=== PATIENT | male | born 1955 | race Caucasian/White ===

== ENCOUNTER 2017-04-25 10:46 | Day surgery (SDC) | payer BC ==
[~2017-04-25] VITALS: Ht 165.1 cm; Wt 79.5 kg
[2017-04-25] MEDS ORDERED: OXYC-307 PO (11:16)
[2017-04-25] MEDS ORDERED: ALPR-475 PO (11:16)
[2017-04-25] MEDS ORDERED: LACTATED RINGERS 1,000 ML IV SCH (11:16)
[2017-04-25 11:17] VITALS: BP 133/94
[2017-04-25 11:58] LABS: BASOPHILS # (AUTO) 0.03 x10^3/uL (0-0.1); BASOPHILS % (AUTO) 0 % (0-1); EOSINOPHILS # (AUTO) 0.06 x10^3/uL (0-0.4); EOSINOPHILS % (AUTO) 1 % (1-7); LYMPHOCYTES # (AUTO) 1.43 x10^3/uL (1-3.4); LYMPHOCYTES % (AUTO) 19 % (22-44); MD NO; MEAN CORPUSCULAR HEMOGLOBIN 29.5 pg (27.5-34.5); MEAN CORPUSCULAR HGB CONC 34.1 g/dL (33.2-36.2); MEAN CORPUSCULAR VOLUME 86.6 fL (81-97); MEAN PLATELET VOLUME 8.3 fL (7.4-10.4); MONOCYTES # (AUTO) 0.66 x10^3/uL (0.2-0.8); MONOCYTES % (AUTO) 9 % (2-9); NEUTROPHILS # (AUTO) 5.43 x10^3/uL (1.8-6.8); NEUTROPHILS % (AUTO) 71 % (42-75); PLATELET COUNT 196 x10^3/uL (130-400); RED BLOOD COUNT 5.09 x10^6/uL (4.38-5.82); RED CELL DISTRIBUTION WIDTH 13.3 % (9.4-14.8)
[2017-04-25 12:10] LABS: ANION GAP 10 mmol/L (5-15); CHLORIDE 105 mmol/L (98-107)
[2017-04-25] MEDS ORDERED: NEOSPORIN OINT. PKT 1 PACKET ONE (12:50)
[2017-04-25] MEDS ORDERED: LIDOCAINE 1%, 50ML ONE (12:50)
[2017-04-25] MEDS ORDERED: EPINEPHRINE 1 MG/ML, 1ML ONE ×2 (12:51→13:41)
[2017-04-25] MEDS ORDERED: SUCCINYLCHOLINE 20 MG/ML, 10ML ONE (13:16)
[2017-04-25] MEDS ORDERED: ROCURONIUM 10 MG/ML,10ML ONE (13:16)
[2017-04-25] MEDS ORDERED: CEFAZOLIN 1,000 MG ONE (13:16)
[2017-04-25] MEDS ORDERED: DEXAMETHASONE 4 MG/ML, 1ML ONE (13:16)
[2017-04-25] MEDS ORDERED: GLYCOPYRROLATE 0.2MG/1ML, 5ML ONE (13:16)
[2017-04-25] MEDS ORDERED: PROPOFOL 10 MG/ML, 20ML ONE ×2 (13:16→13:32)
[2017-04-25] MEDS ORDERED: NEOSTIGMINE 1 MG/ML, 10ML ONE (13:16)
[2017-04-25] MEDS ORDERED: ONDANSETRON 2MG/ML, 2ML ONE (13:16)
[2017-04-25] MEDS ORDERED: FENTANYL PF 100 MCG/2ML ONE (13:31)
[2017-04-25] MEDS ORDERED: MIDAZOLAM 1 MG/ML, 2ML ONE ×2 (13:31→13:59)
[2017-04-25] MEDS ORDERED: LIDOCAINE/MPF 2%-EPI 1:200K, 20 ML ONE (13:36)
[2017-04-25] MEDS ORDERED: LIDOCAINE-MPF 2% ,5ML ONE (13:40)
[2017-04-25] MEDS ORDERED: FENTANYL PF 100 MCG/2ML IV PRN (14:30)
[2017-04-25] MEDS ORDERED: EPHEDRINE 50 MG/ML, 1ML IVPush PRN (14:30)
[2017-04-25] MEDS ORDERED: ALBUTEROL SULFATE 2.5 MG/3 ML NPPB PRN (14:30)
[2017-04-25] MEDS ORDERED: ACETAMINOPHEN 325 MG TABLET PO PRN (14:30)
[2017-04-25] MEDS ORDERED: LABETALOL 5MG/ML, 20ML IV PRN (14:30)
[2017-04-25] MEDS ORDERED: OXYcodone 5 MG/5 ML ORAL.SOL UDC ONE (14:53)
[2017-04-25] MEDS ORDERED: OXYcodone 5 MG/5 ML ORAL.SOL UDC PO PRN (15:00)
== END 2017-04-25 16:25 ==
LOC: OUT 10:46
PROVIDERS: ATTEND Otolaryngology Facial Plastic Surgery
DX: C83.31 Diffuse large B-cell lymphoma, lymph nodes of head, face, and neck (principal)
CPT/HCPCS: 36415; 38510; 71045; 80048; 85025; 88305; 93005; J0171; J0690; J2250; J2704; J3010; J3490; J7120; J1100; J2405; J2710; J0330

== ENCOUNTER 2017-05-01 12:03 | Inpatient (IN) | payer BC ==
[~2017-05-01] VITALS: Ht 165.1 cm; Wt 77.9 kg
[~2017-05-01 12:03] MED LIST: ALPR-475 PO; OXYC-307 PO
[2017-05-01] MEDS ORDERED: SODIUM CHLORIDE FLUSH 10ML SYR IVF ONE (13:30)
[2017-05-01] MEDS ORDERED: MORPHINE SULFATE 4 MG/ML, 1ML IVPush PRN (13:30)
[2017-05-01] MEDS ORDERED: ONDANSETRON 2MG/ML, 2ML IVPush ONE (13:30)
[2017-05-01 13:48] LABS: BASOPHILS # (AUTO) 0.03 x10^3/uL (0-0.1); BASOPHILS % (AUTO) 0 % (0-1); EOSINOPHILS # (AUTO) 0.02 x10^3/uL (0-0.4); EOSINOPHILS % (AUTO) 0 % (1-7); LYMPHOCYTES # (AUTO) 1.14 x10^3/uL (1-3.4); LYMPHOCYTES % (AUTO) 13 % (22-44); MD NO; MEAN CORPUSCULAR HEMOGLOBIN 29.2 pg (27.5-34.5); MEAN CORPUSCULAR HGB CONC 33.8 g/dL (33.2-36.2); MEAN CORPUSCULAR VOLUME 86.4 fL (81-97); MEAN PLATELET VOLUME 8.5 fL (7.4-10.4); MONOCYTES # (AUTO) 0.86 x10^3/uL (0.2-0.8); MONOCYTES % (AUTO) 9 % (2-9); NEUTROPHILS # (AUTO) 7.02 x10^3/uL (1.8-6.8); NEUTROPHILS % (AUTO) 77 % (42-75); PLATELET COUNT 206 x10^3/uL (130-400); RED BLOOD COUNT 4.96 x10^6/uL (4.38-5.82); RED CELL DISTRIBUTION WIDTH 13.7 % (9.4-14.8)
[2017-05-01 13:52] LABS: INTERNATIONAL NORMALIZED RATIO 1.07 (0.93-1.1)
[2017-05-01] MEDS ORDERED: MORPHINE SULFATE 4 MG/ML, 1ML ONE (13:56)
[2017-05-01] MEDS ORDERED: ONDANSETRON 2MG/ML, 2ML ONE (13:56)
[2017-05-01] MEDS ORDERED: SODIUM CHLORIDE 0.9% 1,000ML IVBOLUS ONE (14:30)
[2017-05-01 14:38] LABS: ALANINE AMINOTRANSFERASE 20 U/L (12-78); ALBUMIN 3.3 g/dL (3.4-5.0); ANION GAP 14 mmol/L (5-15); CALCIUM 8.7 mg/dL (8.5-10.1); CHLORIDE 99 mmol/L (98-107); CREATININE 0.96 mg/dL (0.7-1.3)
[2017-05-01 14:41] LABS: ALKALINE PHOSPHATASE 76 U/L (45-117); BILIRUBIN,TOTAL 0.6 mg/dL (0.2-1.0); TOTAL PROTEIN 7.1 g/dL (6.4-8.2)
[2017-05-01] MEDS ORDERED: CEFAZOLIN PMX 1GM/50ML 50 ML IVPB ONE (16:00)
[2017-05-01] MEDS ORDERED: HYDROmorphone 1 MG/ML, 1ML IVPush PRN (16:00)
[2017-05-01] MEDS ORDERED: HYDROmorphone 2 MG/ML, 1ML ONE (16:07)
[2017-05-01] MEDS ORDERED: CEFAZOLIN PMX 1GM/50ML 50 ML ONE (16:07)
[2017-05-01] MEDS ORDERED: SODIUM CHLORIDE 0.9% 1,000 ML IV ONE (16:38)
[2017-05-01] MEDS: SODIUM CHLORIDE 0.9% 1,000 ML IV SCH (16:53)
[2017-05-01] MEDS ORDERED: hydrALAzine 20 MG/ML, 1ML IVPush PRN (17:00)
[2017-05-01] MEDS ORDERED: LORazepam 2 MG/ML, 1ML IVPush PRN (17:00)
[2017-05-01] MEDS ORDERED: SODIUM CHLORIDE FLUSH 10ML SYR IVF PRN (17:00)
[2017-05-01] MEDS ORDERED: ONDANSETRON 2MG/ML, 2ML IVPush PRN (17:00)
[2017-05-01] MEDS ORDERED: DOCUSATE 100 MG CAPSULE PO PRN (17:00)
[2017-05-01] MEDS ORDERED: LABETALOL 5MG/ML, 20ML IVPush PRN (17:00)
[2017-05-01] MEDS ORDERED: HYDROmorphone 2 MG/ML, 1ML IVPush PRN (17:00)
[2017-05-01] MEDS ORDERED: BISACODYL 10 MG SUPP PR PRN (17:00)
[2017-05-01 18:15] VITALS: BP 142/91
[2017-05-01] MEDS: HYDROmorphone 2 MG/ML, 1ML IVPush PRN ×2 (18:26→22:27)
[2017-05-01 19:48] VITALS: BP 128/86
[2017-05-02] MEDS: SODIUM CHLORIDE 0.9% 1,000 ML IV SCH ×3 (00:34→21:16)
[2017-05-02] MEDS: HYDROmorphone 2 MG/ML, 1ML IVPush PRN (02:59)
[2017-05-02] MEDS: ONDANSETRON 2MG/ML, 2ML IVPush PRN ×2 (02:59→18:06)
[2017-05-02 03:00] VITALS: BP 137/85
[2017-05-02] MEDS: morphine SULFATE 10 MG/ML, 1ML IVPush PRN ×5 (04:22→21:16)
[2017-05-02 05:02] LABS: BASOPHILS # (AUTO) 0.05 x10^3/uL (0-0.1); BASOPHILS % (AUTO) 1 % (0-1); EOSINOPHILS # (AUTO) 0.03 x10^3/uL (0-0.4); EOSINOPHILS % (AUTO) 0 % (1-7); LYMPHOCYTES # (AUTO) 1.21 x10^3/uL (1-3.4); LYMPHOCYTES % (AUTO) 15 % (22-44); MD NO; MEAN CORPUSCULAR HEMOGLOBIN 29.2 pg (27.5-34.5); MEAN CORPUSCULAR HGB CONC 33.5 g/dL (33.2-36.2); MEAN CORPUSCULAR VOLUME 87.4 fL (81-97); MEAN PLATELET VOLUME 8.6 fL (7.4-10.4); MONOCYTES # (AUTO) 0.69 x10^3/uL (0.2-0.8); MONOCYTES % (AUTO) 9 % (2-9); NEUTROPHILS # (AUTO) 6.18 x10^3/uL (1.8-6.8); NEUTROPHILS % (AUTO) 76 % (42-75); PLATELET COUNT 204 x10^3/uL (130-400); RED BLOOD COUNT 4.41 x10^6/uL (4.38-5.82); RED CELL DISTRIBUTION WIDTH 13.3 % (9.4-14.8)
[2017-05-02 05:14] LABS: CHLORIDE 102 mmol/L (98-107)
[2017-05-02 05:15] LABS: ANION GAP 12 mmol/L (5-15); CALCIUM 7.9 mg/dL (8.5-10.1)
[2017-05-02 05:20] LABS: ALANINE AMINOTRANSFERASE 18 U/L (12-78); ALKALINE PHOSPHATASE 68 U/L (45-117); BILIRUBIN,TOTAL 0.6 mg/dL (0.2-1.0); CREATININE 0.74 mg/dL (0.7-1.3); TOTAL PROTEIN 6.3 g/dL (6.4-8.2)
[2017-05-02 06:56] VITALS: BP 122/74
[2017-05-02] MEDS ORDERED: METOCLOPRAMIDE 5 MG/ML, 2ML ONE (08:05)
[2017-05-02] MEDS: SENNA/DOCUSATE TABLET PO SCH (08:10)
[2017-05-02] MEDS: METOCLOPRAMIDE 5 MG/ML, 2ML IVPush PRN (08:10)
[2017-05-02 14:06] VITALS: BP 115/67
[2017-05-02 19:30] VITALS: BP 150/86
[2017-05-02] MEDS: ALLOPURINOL 300 MG TABLET PO SCH (20:11)
[2017-05-03] MEDS: morphine SULFATE 10 MG/ML, 1ML IVPush PRN ×5 (00:17→19:23)
[2017-05-03 02:15] VITALS: BP 126/77
[2017-05-03 05:05] LABS: BASOPHILS # (AUTO) 0.06 x10^3/uL (0-0.1); BASOPHILS % (AUTO) 1 % (0-1); EOSINOPHILS # (AUTO) 0.04 x10^3/uL (0-0.4); EOSINOPHILS % (AUTO) 1 % (1-7); LYMPHOCYTES # (AUTO) 1.11 x10^3/uL (1-3.4); LYMPHOCYTES % (AUTO) 17 % (22-44); MD NO; MEAN CORPUSCULAR HEMOGLOBIN 29.1 pg (27.5-34.5); MEAN CORPUSCULAR HGB CONC 33.6 g/dL (33.2-36.2); MEAN CORPUSCULAR VOLUME 86.7 fL (81-97); MEAN PLATELET VOLUME 8.2 fL (7.4-10.4); MONOCYTES # (AUTO) 0.71 x10^3/uL (0.2-0.8); MONOCYTES % (AUTO) 11 % (2-9); NEUTROPHILS # (AUTO) 4.56 x10^3/uL (1.8-6.8); NEUTROPHILS % (AUTO) 70 % (42-75); PLATELET COUNT 190 x10^3/uL (130-400); RED BLOOD COUNT 4.24 x10^6/uL (4.38-5.82); RED CELL DISTRIBUTION WIDTH 13.6 % (9.4-14.8)
[2017-05-03 05:07] LABS: ALBUMIN 2.8 g/dL (3.4-5.0); ANION GAP 12 mmol/L (5-15); CALCIUM 8.3 mg/dL (8.5-10.1); CHLORIDE 106 mmol/L (98-107)
[2017-05-03 05:18] LABS: ALANINE AMINOTRANSFERASE 19 U/L (12-78); ALKALINE PHOSPHATASE 64 U/L (45-117); BILIRUBIN,TOTAL 0.6 mg/dL (0.2-1.0); CREATININE 0.76 mg/dL (0.7-1.3); TOTAL PROTEIN 5.9 g/dL (6.4-8.2)
[2017-05-03] MEDS: SODIUM CHLORIDE 0.9% 1,000 ML IV SCH (07:28)
[2017-05-03 07:47] VITALS: BP 132/80
[2017-05-03] MEDS: ALLOPURINOL 300 MG TABLET PO SCH ×2 (08:03→21:33)
[2017-05-03] MEDS: SENNA/DOCUSATE TABLET PO SCH (08:15)
[2017-05-03] MEDS ORDERED: LIDOCAINE 1%, 20ML ONE (11:57)
[2017-05-03] MEDS ORDERED: MIDAZOLAM 1 MG/ML, 5ML ONE (12:03)
[2017-05-03] MEDS ORDERED: FLUMAZENIL 0.1 MG/1 ML, 5ML ONE (12:03)
[2017-05-03] MEDS ORDERED: NALOXONE 1 MG/ML, 2ML ONE (12:03)
[2017-05-03] MEDS ORDERED: FENTANYL PF 100 MCG/2ML ONE (12:03)
[2017-05-03] MEDS ORDERED: CEFAZOLIN PMX 1GM/50ML 50 ML ONE (12:03)
[2017-05-03 13:00] LABS: BASOPHILS # (AUTO) 0.01 x10^3/uL (0-0.1); BASOPHILS % (AUTO) 0 % (0-1); EOSINOPHILS # (AUTO) 0.02 x10^3/uL (0-0.4); EOSINOPHILS % (AUTO) 0 % (1-7); LYMPHOCYTES # (AUTO) 1.18 x10^3/uL (1-3.4); LYMPHOCYTES % (AUTO) 19 % (22-44); MD NO; MEAN CORPUSCULAR HEMOGLOBIN 29.1 pg (27.5-34.5); MEAN CORPUSCULAR HGB CONC 33.6 g/dL (33.2-36.2); MEAN CORPUSCULAR VOLUME 86.6 fL (81-97); MEAN PLATELET VOLUME 8.1 fL (7.4-10.4); MONOCYTES # (AUTO) 0.53 x10^3/uL (0.2-0.8); MONOCYTES % (AUTO) 8 % (2-9); NEUTROPHILS # (AUTO) 4.67 x10^3/uL (1.8-6.8); NEUTROPHILS % (AUTO) 73 % (42-75); PLATELET COUNT 212 x10^3/uL (130-400); RED BLOOD COUNT 4.53 x10^6/uL (4.38-5.82); RED CELL DISTRIBUTION WIDTH 13.7 % (9.4-14.8)
[2017-05-03 13:13] LABS: ANION GAP 14 mmol/L (5-15); CALCIUM 8.5 mg/dL (8.5-10.1); CHLORIDE 104 mmol/L (98-107)
[2017-05-03 13:17] LABS: TROPONIN I < 0.015 ng/mL (0.000-0.045)
[2017-05-03] MEDS ORDERED: FOSAPREPITANT 150 MG in SODIUM CHLORIDE 0.9% 145 ML IV ONE (13:30)
[2017-05-03] MEDS ORDERED: ONDANSETRON 16 MG, DEXAMETHASONE 12 MG in SODIUM CHLORIDE 0.9% 50 ML IVPB ONE ×2 (14:00→16:30)
[2017-05-03] MEDS ORDERED: DIPHENHYDRAMINE 50 MG/ML, 1ML IVPush ONE (14:00)
[2017-05-03] MEDS ORDERED: FAMOTIDINE 20 MG/2 ML IVPush ONE (14:00)
[2017-05-03] MEDS ORDERED: RITUXIMAB 700 MG in SODIUM CHLORIDE 0.9% 250 ML IV ONE (17:00)
[2017-05-03] MEDS ORDERED: SODIUM CHLORIDE 0.9% IV ONE (21:30)
[2017-05-03] MEDS ORDERED: CYCLOPHOSPHAMIDE IV ONE (21:30)
[2017-05-03] MEDS: predniSONE 50MG TABLET PO SCH (22:44)
[2017-05-04 03:54] LABS: BASOPHILS % (AUTO) 0 % (0-1); EOSINOPHILS % (AUTO) 0 % (1-7); LYMPHOCYTES # (AUTO) 0.35 x10^3/uL (1-3.4); LYMPHOCYTES % (AUTO) 6 % (22-44); MD NO; MEAN CORPUSCULAR HEMOGLOBIN 29.5 pg (27.5-34.5); MEAN CORPUSCULAR HGB CONC 34.3 g/dL (33.2-36.2); MEAN PLATELET VOLUME 8.2 fL (7.4-10.4); MONOCYTES # (AUTO) 0.04 x10^3/uL (0.2-0.8); MONOCYTES % (AUTO) 1 % (2-9); NEUTROPHILS # (AUTO) 5.49 x10^3/uL (1.8-6.8); NEUTROPHILS % (AUTO) 93 % (42-75); PLATELET COUNT 216 x10^3/uL (130-400); RED BLOOD COUNT 4.57 x10^6/uL (4.38-5.82); RED CELL DISTRIBUTION WIDTH 13.3 % (9.4-14.8)
[2017-05-04 04:05] LABS: ANION GAP 13 mmol/L (5-15); CALCIUM 8.6 mg/dL (8.5-10.1); CHLORIDE 105 mmol/L (98-107); CREATININE 0.78 mg/dL (0.7-1.3)
[2017-05-04] MEDS ORDERED: MORPHINE SULFATE 4 MG/ML, 1ML ONE (07:44)
[2017-05-04] MEDS: MORPHINE SULFATE 4 MG/ML, 1ML IVPush PRN ×4 (07:54→22:10)
[2017-05-04] MEDS: ALLOPURINOL 300 MG TABLET PO SCH ×2 (08:21→20:11)
[2017-05-04] MEDS: predniSONE 50MG TABLET PO SCH ×2 (08:21→18:54)
[2017-05-04] MEDS: SENNA/DOCUSATE TABLET PO SCH (08:21)
[2017-05-04] MEDS ORDERED: ONDANSETRON 16 MG, DEXAMETHASONE 12 MG in SODIUM CHLORIDE 0.9% 50 ML IV ONE (13:30)
[2017-05-04 14:06] VITALS: BP 134/86
[2017-05-04] MEDS: NS + 20MEQ KCL 1,000 ML IV SCH ×2 (15:30→23:22)
[2017-05-04] MEDS ORDERED: SODIUM CHLORIDE 0.9% 1,000 ML IV SCH (16:53)
[2017-05-04 19:01] VITALS: BP 120/79
[2017-05-05 00:37] VITALS: BP 109/70
[2017-05-05] MEDS: MORPHINE SULFATE 4 MG/ML, 1ML IVPush PRN ×4 (04:38→19:57)
[2017-05-05 05:28] LABS: CHLORIDE 105 mmol/L (98-107)
[2017-05-05 05:29] LABS: BASOPHILS % (AUTO) 0 % (0-1); EOSINOPHILS % (AUTO) 0 % (1-7); LYMPHOCYTES # (AUTO) 0.29 x10^3/uL (1-3.4); LYMPHOCYTES % (AUTO) 3 % (22-44); MD NO; MEAN CORPUSCULAR HEMOGLOBIN 29.7 pg (27.5-34.5); MEAN CORPUSCULAR HGB CONC 34.1 g/dL (33.2-36.2); MEAN PLATELET VOLUME 8.3 fL (7.4-10.4); MONOCYTES # (AUTO) 0.55 x10^3/uL (0.2-0.8); MONOCYTES % (AUTO) 5 % (2-9); NEUTROPHILS # (AUTO) 11.19 x10^3/uL (1.8-6.8); NEUTROPHILS % (AUTO) 93 % (42-75); PLATELET COUNT 186 x10^3/uL (130-400); RED CELL DISTRIBUTION WIDTH 13.2 % (9.4-14.8)
[2017-05-05 05:48] LABS: ALANINE AMINOTRANSFERASE 20 U/L (12-78); ALBUMIN 2.6 g/dL (3.4-5.0); ALKALINE PHOSPHATASE 57 U/L (45-117); ANION GAP 11 mmol/L (5-15); BILIRUBIN,TOTAL 0.3 mg/dL (0.2-1.0); CALCIUM 7.7 mg/dL (8.5-10.1); CREATININE 0.78 mg/dL (0.7-1.3); TOTAL PROTEIN 5.5 g/dL (6.4-8.2)
[2017-05-05 07:25] VITALS: BP 112/73
[2017-05-05] MEDS: ALLOPURINOL 300 MG TABLET PO SCH ×2 (07:35→19:57)
[2017-05-05] MEDS: NS + 20MEQ KCL 1,000 ML IV SCH ×2 (07:35→16:44)
[2017-05-05] MEDS: SENNA/DOCUSATE TABLET PO SCH (07:36)
[2017-05-05] MEDS: predniSONE 50MG TABLET PO SCH ×2 (07:36→16:34)
[2017-05-05 14:06] VITALS: BP 100/65
[2017-05-05] MEDS: ONDANSETRON 2MG/ML, 2ML IVPush PRN (16:44)
[2017-05-05 18:58] VITALS: BP 98/63
[2017-05-05] MEDS: ENOXAPARIN 40 MG/0.4 ML SQ SCH (19:57)
[2017-05-06 00:29] VITALS: BP 124/74
[2017-05-06] MEDS: NS + 20MEQ KCL 1,000 ML IV SCH ×3 (00:57→16:56)
[2017-05-06 04:57] LABS: BASOPHILS # (AUTO) 0.02 x10^3/uL (0-0.1); BASOPHILS % (AUTO) 0 % (0-1); EOSINOPHILS % (AUTO) 0 % (1-7); LYMPHOCYTES % (AUTO) 4 % (22-44); MD NO; MEAN CORPUSCULAR HEMOGLOBIN 29.6 pg (27.5-34.5); MEAN PLATELET VOLUME 8.1 fL (7.4-10.4); MONOCYTES # (AUTO) 0.62 x10^3/uL (0.2-0.8); MONOCYTES % (AUTO) 6 % (2-9); NEUTROPHILS # (AUTO) 8.53 x10^3/uL (1.8-6.8); NEUTROPHILS % (AUTO) 89 % (42-75); PLATELET COUNT 158 x10^3/uL (130-400); RED BLOOD COUNT 3.84 x10^6/uL (4.38-5.82); RED CELL DISTRIBUTION WIDTH 13.7 % (9.4-14.8)
[2017-05-06 05:03] LABS: ALANINE AMINOTRANSFERASE 25 U/L (12-78); ALBUMIN 2.5 g/dL (3.4-5.0); ANION GAP 4 mmol/L (5-15); CALCIUM 7.6 mg/dL (8.5-10.1); CHLORIDE 109 mmol/L (98-107); CREATININE 0.68 mg/dL (0.7-1.3)
[2017-05-06 05:05] LABS: ALKALINE PHOSPHATASE 54 U/L (45-117); BILIRUBIN,TOTAL 0.2 mg/dL (0.2-1.0); TOTAL PROTEIN 5.2 g/dL (6.4-8.2)
[2017-05-06] MEDS: ONDANSETRON 2MG/ML, 2ML IVPush PRN ×3 (05:39→20:07)
[2017-05-06] MEDS: SENNA/DOCUSATE TABLET PO SCH (07:41)
[2017-05-06] MEDS: predniSONE 50MG TABLET PO SCH ×2 (07:41→16:56)
[2017-05-06] MEDS: ALLOPURINOL 300 MG TABLET PO SCH ×2 (07:41→20:07)
[2017-05-06 07:51] VITALS: BP 113/75
[2017-05-06] MEDS: METOCLOPRAMIDE 5 MG/ML, 2ML IVPush PRN ×2 (09:00→17:01)
[2017-05-06] MEDS: OMEPRAZOLE 20 MG CAPSULE.DR PO SCH (09:20)
[2017-05-06] MEDS: LORazepam 2 MG/ML, 1ML IVPush PRN ×2 (12:11→21:15)
[2017-05-06 15:00] VITALS: BP 108/71
[2017-05-06] MEDS: ENOXAPARIN 40 MG/0.4 ML SQ SCH (16:56)
[2017-05-06 21:14] VITALS: BP 114/72
[2017-05-07] MEDS: NS + 20MEQ KCL 1,000 ML IV SCH ×3 (01:46→18:47)
[2017-05-07 01:50] VITALS: BP 140/80
[2017-05-07] MEDS: ONDANSETRON 2MG/ML, 2ML IVPush PRN ×3 (03:53→20:42)
[2017-05-07] MEDS: LORazepam 2 MG/ML, 1ML IVPush PRN (05:28)
[2017-05-07 07:34] VITALS: BP 130/87
[2017-05-07] MEDS: SENNA/DOCUSATE TABLET PO SCH (09:00)
[2017-05-07] MEDS ORDERED: MAALOX/HYOSCYAMINE/LIDOCAINE 45 ML BTL PO ONE (09:30)
[2017-05-07] MEDS: OMEPRAZOLE 20 MG CAPSULE.DR PO SCH (09:35)
[2017-05-07] MEDS: PROCHLORPERAZINE 10MG TABLET PO PRN ×2 (09:35→17:37)
[2017-05-07] MEDS: ALLOPURINOL 300 MG TABLET PO SCH ×2 (09:35→20:42)
[2017-05-07] MEDS: predniSONE 50MG TABLET PO SCH ×2 (09:35→17:37)
[2017-05-07 10:33] LABS: CLOSTRIDIUM DIFFICILE ANTIGEN POSITIVE; CLOSTRIDIUM DIFFICILE TOXIN POSITIVE (Negative)
[2017-05-07] MEDS: metroNIDAZOLE 500 MG TABLET PO SCH ×2 (11:50→20:42)
[2017-05-07 15:45] VITALS: BP 137/80
[2017-05-07] MEDS: ENOXAPARIN 40 MG/0.4 ML SQ SCH (18:47)
[2017-05-07 20:30] VITALS: BP 140/90
[2017-05-08 01:14] VITALS: BP 127/80
[2017-05-08] MEDS: PROCHLORPERAZINE 10MG TABLET PO PRN ×2 (01:17→17:13)
[2017-05-08] MEDS: NS + 20MEQ KCL 1,000 ML IV SCH ×2 (02:09→10:17)
[2017-05-08] MEDS: metroNIDAZOLE 500 MG TABLET PO SCH ×3 (04:21→20:30)
[2017-05-08] MEDS: ONDANSETRON 2MG/ML, 2ML IVPush PRN (04:21)
[2017-05-08 04:36] LABS: BASOPHILS % (AUTO) 0 % (0-1); EOSINOPHILS % (AUTO) 0 % (1-7); LYMPHOCYTES # (AUTO) 0.28 x10^3/uL (1-3.4); LYMPHOCYTES % (AUTO) 5 % (22-44); MD NO; MEAN CORPUSCULAR HGB CONC 33.6 g/dL (33.2-36.2); MEAN CORPUSCULAR VOLUME 86.5 fL (81-97); MEAN PLATELET VOLUME 8.4 fL (7.4-10.4); MONOCYTES # (AUTO) 0.09 x10^3/uL (0.2-0.8); MONOCYTES % (AUTO) 2 % (2-9); NEUTROPHILS # (AUTO) 5.37 x10^3/uL (1.8-6.8); NEUTROPHILS % (AUTO) 94 % (42-75); PLATELET COUNT 124 x10^3/uL (130-400); RED BLOOD COUNT 4.16 x10^6/uL (4.38-5.82); RED CELL DISTRIBUTION WIDTH 13.4 % (9.4-14.8)
[2017-05-08 04:38] LABS: ANION GAP 5 mmol/L (5-15); CALCIUM 8.1 mg/dL (8.5-10.1); CHLORIDE 107 mmol/L (98-107); CREATININE 0.54 mg/dL (0.7-1.3)
[2017-05-08] MEDS: ALLOPURINOL 300 MG TABLET PO SCH ×2 (08:48→20:29)
[2017-05-08] MEDS: SENNA/DOCUSATE TABLET PO SCH ×2 (08:48→09:00)
[2017-05-08] MEDS: OMEPRAZOLE 20 MG CAPSULE.DR PO SCH (08:48)
[2017-05-08] MEDS: ONDANSETRON ODT 4 MG PO PRN ×2 (08:48→09:05)
[2017-05-08 08:58] VITALS: BP 131/83
[2017-05-08] MEDS ORDERED: METR500T PO (12:23)
[2017-05-08] MEDS ORDERED: ONDA4TAB10 PO (14:43)
[2017-05-08] MEDS: ENOXAPARIN 40 MG/0.4 ML SQ SCH (17:16)
[2017-05-08 20:10] VITALS: BP 129/83
[2017-05-08] MEDS: METOCLOPRAMIDE 5 MG/ML, 2ML IVPush PRN (20:30)
== END 2017-05-08 22:10 | disposition home or self-care (01) | DRG 840 ==
LOC: ED 16:37 → EDIP 16:38 → ED 17:17 → 3NW 17:49 → ICU 05-03 12:37 → 3NW 05-04 11:15
PROVIDERS: ADMIT Internal Medicine; ATTEND Internal Medicine
PROC: 02HV33Z Insertion of Infusion Device into Superior Vena Cava, Percutaneous Approach (ICD-10-PCS; principal; 2017-05-03)
PROC: B548ZZA Ultrasonography of Superior Vena Cava, Guidance (ICD-10-PCS; 2017-05-03)
DX: C83.30 Diffuse large B-cell lymphoma, unspecified site (principal); J96.00 Acute respiratory failure, unspecified whether with hypoxia or hypercapnia; R09.2 Respiratory arrest; A04.72 Enterocolitis due to Clostridium difficile, not specified as recurrent; E44.0 Moderate protein-calorie malnutrition; E87.2 Acidosis; R13.10 Dysphagia, unspecified; J98.11 Atelectasis; Z80.7 Family history of other malignant neoplasms of lymphoid, hematopoietic and related tissues; Z53.8 Procedure and treatment not carried out for other reasons; R74.0 Nonspecific elevation of levels of transaminase and lactic acid dehydrogenase [LDH]
CPT/HCPCS: 36415; 36569; 36600; 70491; 71045; 74230; 76937; 77001; 80048; 80053; 83605; 83615; 83735; 84145; 84484; 84550; 85025; 85610; 85730; 86704; 87040; 87081; 87324; 87340; 93005; 93306; 96361; 96365; 96375; J0690; J1100; J1170; J1453; J1650; J2250; J2405; J3010; J3480; J3490; J9070; Q0162; Q0164; C1751; J1200; J1642; J2060; J2270; J2310; J2765; J7030; J7050; J7512; J9000; J9310; J9370; S0028

== ENCOUNTER 2017-05-28 07:30 | Inpatient (IN) | payer BC ==
[~2017-05-28] VITALS: Ht 165.1 cm; Wt 75.3 kg
[~2017-05-28 07:30] MED LIST changes: +METR500T PO; +ONDA4TAB10 PO
[2017-05-28 09:18] LABS: BASOPHILS # (AUTO) 0.04 x10^3/uL (0-0.1); BASOPHILS % (AUTO) 0 % (0-1); EOSINOPHILS % (AUTO) 0 % (1-7); LYMPHOCYTES # (AUTO) 0.97 x10^3/uL (1-3.4); LYMPHOCYTES % (AUTO) 9 % (22-44); MD NO; MEAN CORPUSCULAR HEMOGLOBIN 29.1 pg (27.5-34.5); MEAN CORPUSCULAR HGB CONC 33.5 g/dL (33.2-36.2); MEAN CORPUSCULAR VOLUME 86.7 fL (81-97); MEAN PLATELET VOLUME 7.8 fL (7.4-10.4); MONOCYTES # (AUTO) 0.69 x10^3/uL (0.2-0.8); MONOCYTES % (AUTO) 7 % (2-9); NEUTROPHILS # (AUTO) 8.56 x10^3/uL (1.8-6.8); NEUTROPHILS % (AUTO) 83 % (42-75); PLATELET COUNT 221 x10^3/uL (130-400); RED BLOOD COUNT 4.57 x10^6/uL (4.38-5.82); RED CELL DISTRIBUTION WIDTH 13.8 % (9.4-14.8)
[2017-05-28 09:27] LABS: ALANINE AMINOTRANSFERASE 28 U/L (12-78); ALBUMIN 3.2 g/dL (3.4-5.0); ANION GAP 7 mmol/L (5-15); CALCIUM 8.6 mg/dL (8.5-10.1); CHLORIDE 108 mmol/L (98-107)
[2017-05-28 09:29] LABS: ALKALINE PHOSPHATASE 87 U/L (45-117); BILIRUBIN,TOTAL 0.3 mg/dL (0.2-1.0); TOTAL PROTEIN 6.6 g/dL (6.4-8.2)
[2017-05-28 10:50] VITALS: BP 120/87
[2017-05-28] MEDS ORDERED: ACETAMINOPHEN 325 MG TABLET PO ONE (12:00)
[2017-05-28] MEDS: ALLOPURINOL 300 MG TABLET PO SCH (12:00)
[2017-05-28] MEDS: NS + 20MEQ KCL 1,000 ML IV SCH (12:00)
[2017-05-28] MEDS: DIPHENHYDRAMINE 50 MG/ML, 1ML IVPush SCH (12:00)
[2017-05-28] MEDS: ENOXAPARIN 40 MG/0.4 ML SQ SCH (12:01)
[2017-05-28] MEDS ORDERED: SODIUM CHLORIDE 0.9% IV ONE (12:30)
[2017-05-28] MEDS ORDERED: ONDANSETRON ODT 8 MG PO PRN (12:30)
[2017-05-28] MEDS ORDERED: RITUXIMAB IV ONE (12:30)
[2017-05-28] MEDS ORDERED: FAMOTIDINE 20 MG/2 ML IVPush ONE (12:30)
[2017-05-28] MEDS: predniSONE 50MG TABLET PO SCH (12:35)
[2017-05-28 13:21] VITALS: BP 108/71
[2017-05-28] MEDS: ONDANSETRON 16 MG in SODIUM CHLORIDE 0.9% 50 ML IVPB SCH (17:17)
[2017-05-28] MEDS: OXYcodone IR 5MG TABLET PO PRN ×2 (18:02→22:54)
[2017-05-28] MEDS ORDERED: [UNRECOGNIZED DRUG - OTHER] IVPB SCH (18:30)
[2017-05-28] MEDS ORDERED: DOXORUBICIN IVPB SCH (18:30)
[2017-05-28] MEDS ORDERED: VINCRISTINE IVPB SCH (18:30)
[2017-05-28] MEDS ORDERED: ETOPOSIDE IVPB SCH (18:30)
[2017-05-28] MEDS ORDERED: FOSAPREPITANT 150 MG in SODIUM CHLORIDE 0.9% 145 ML IV ONE (18:30)
[2017-05-28 19:46] VITALS: BP 132/81
[2017-05-29] MEDS: predniSONE 50MG TABLET PO SCH ×2 (00:29→12:45)
[2017-05-29] MEDS: NS + 20MEQ KCL 1,000 ML IV SCH ×2 (01:06→15:35)
[2017-05-29 01:27] VITALS: BP 107/71
[2017-05-29 05:59] LABS: MEAN CORPUSCULAR HEMOGLOBIN 29.2 pg (27.5-34.5); MEAN CORPUSCULAR HGB CONC 33.6 g/dL (33.2-36.2); MEAN CORPUSCULAR VOLUME 86.7 fL (81-97); MEAN PLATELET VOLUME 8.4 fL (7.4-10.4); PLATELET COUNT 221 x10^3/uL (130-400); RED CELL DISTRIBUTION WIDTH 13.9 % (9.4-14.8)
[2017-05-29 06:02] LABS: ALBUMIN 2.8 g/dL (3.4-5.0); ANION GAP 6 mmol/L (5-15); CALCIUM 8.4 mg/dL (8.5-10.1); CHLORIDE 109 mmol/L (98-107)
[2017-05-29 06:08] LABS: ALANINE AMINOTRANSFERASE 23 U/L (12-78); ALKALINE PHOSPHATASE 74 U/L (45-117); BILIRUBIN,TOTAL 0.3 mg/dL (0.2-1.0); TOTAL PROTEIN 6.2 g/dL (6.4-8.2)
[2017-05-29 06:27] LABS: MD YES
[2017-05-29 06:47] LABS: LYMPH#(MANUAL) 2.52 x10^3/uL (1-3.4); LYMPHS% (MANUAL) 18 % (22-44); SEG#(MANUAL) 11.48 x10^3/uL (1.8-6.8); SEGS% (MANUAL) 82 % (42-75)
[2017-05-29 06:48] LABS: <PLATELET ESTIMATE> ADEQUATE; <PLT MORPHOLOGY> NORMAL PLT MORPH; ANISOCYTOSIS 1+
[2017-05-29 07:24] VITALS: BP 108/71
[2017-05-29] MEDS: ENOXAPARIN 40 MG/0.4 ML SQ SCH (12:45)
[2017-05-29] MEDS: DIPHENHYDRAMINE 50 MG/ML, 1ML IVPush SCH (12:45)
[2017-05-29] MEDS: ALLOPURINOL 300 MG TABLET PO SCH (12:45)
[2017-05-29 13:04] VITALS: BP 103/67
[2017-05-29] MEDS: OXYcodone IR 5MG TABLET PO PRN ×2 (17:13→22:32)
[2017-05-29] MEDS: ONDANSETRON 16 MG in SODIUM CHLORIDE 0.9% 50 ML IVPB SCH (17:30)
[2017-05-29] MEDS: ETOPOSIDE IVPB SCH (18:16)
[2017-05-29] MEDS: [UNRECOGNIZED DRUG - OTHER] IVPB SCH (18:16)
[2017-05-29] MEDS: VINCRISTINE IVPB SCH (18:16)
[2017-05-29] MEDS: DOXORUBICIN IVPB SCH (18:16)
[2017-05-29 21:49] VITALS: BP 118/74
[2017-05-30] MEDS: predniSONE 50MG TABLET PO SCH ×2 (00:54→12:43)
[2017-05-30 04:10] VITALS: BP 104/69
[2017-05-30] MEDS: NS + 20MEQ KCL 1,000 ML IV SCH ×2 (04:55→17:01)
[2017-05-30 05:14] LABS: ALBUMIN 2.8 g/dL (3.4-5.0); ANION GAP 7 mmol/L (5-15); CHLORIDE 111 mmol/L (98-107)
[2017-05-30 05:17] LABS: ALANINE AMINOTRANSFERASE 24 U/L (12-78); ALKALINE PHOSPHATASE 75 U/L (45-117); BILIRUBIN,TOTAL 0.2 mg/dL (0.2-1.0); CREATININE 0.71 mg/dL (0.7-1.3); TOTAL PROTEIN 5.7 g/dL (6.4-8.2)
[2017-05-30 05:24] LABS: MEAN CORPUSCULAR HEMOGLOBIN 28.9 pg (27.5-34.5); MEAN CORPUSCULAR HGB CONC 33.4 g/dL (33.2-36.2); MEAN CORPUSCULAR VOLUME 86.6 fL (81-97); MEAN PLATELET VOLUME 8.3 fL (7.4-10.4); PLATELET COUNT 216 x10^3/uL (130-400); RED BLOOD COUNT 3.96 x10^6/uL (4.38-5.82); RED CELL DISTRIBUTION WIDTH 14.4 % (9.4-14.8)
[2017-05-30 05:54] LABS: BASOPHILS % (AUTO) 0 % (0-1); EOSINOPHILS % (AUTO) 0 % (1-7); LYMPHOCYTES # (AUTO) 0.42 x10^3/uL (1-3.4); LYMPHOCYTES % (AUTO) 2 % (22-44); MD SCAN; MONOCYTES % (AUTO) 1 % (2-9); NEUTROPHILS # (AUTO) 17.95 x10^3/uL (1.8-6.8); NEUTROPHILS % (AUTO) 97 % (42-75)
[2017-05-30 10:11] VITALS: BP 128/87
[2017-05-30 10:46] VITALS: BP 128/87
[2017-05-30] MEDS: DIPHENHYDRAMINE 50 MG/ML, 1ML IVPush SCH (12:40)
[2017-05-30] MEDS: OXYcodone IR 5MG TABLET PO PRN ×2 (12:43→18:33)
[2017-05-30] MEDS: ALLOPURINOL 300 MG TABLET PO SCH (12:43)
[2017-05-30] MEDS: ENOXAPARIN 40 MG/0.4 ML SQ SCH (12:43)
[2017-05-30 15:59] VITALS: BP 123/83
[2017-05-30] MEDS: ONDANSETRON 16 MG in SODIUM CHLORIDE 0.9% 50 ML IVPB SCH (17:06)
[2017-05-30] MEDS: ETOPOSIDE IVPB SCH (18:22)
[2017-05-30] MEDS: [UNRECOGNIZED DRUG - OTHER] IVPB SCH (18:22)
[2017-05-30] MEDS: VINCRISTINE IVPB SCH (18:22)
[2017-05-30] MEDS: DOXORUBICIN IVPB SCH (18:22)
[2017-05-30 19:54] VITALS: BP 139/88
[2017-05-31] MEDS: predniSONE 50MG TABLET PO SCH ×2 (00:39→12:12)
[2017-05-31 04:03] VITALS: BP 112/66
[2017-05-31] MEDS: OXYcodone IR 5MG TABLET PO PRN ×4 (04:14→18:59)
[2017-05-31] MEDS: NS + 20MEQ KCL 1,000 ML IV SCH ×2 (05:49→20:22)
[2017-05-31 06:04] LABS: MEAN CORPUSCULAR HGB CONC 34.6 g/dL (33.2-36.2); MEAN CORPUSCULAR VOLUME 86.8 fL (81-97); MEAN PLATELET VOLUME 8.2 fL (7.4-10.4); PLATELET COUNT 182 x10^3/uL (130-400); RED BLOOD COUNT 3.58 x10^6/uL (4.38-5.82); RED CELL DISTRIBUTION WIDTH 14.5 % (9.4-14.8)
[2017-05-31 06:16] LABS: CHLORIDE 110 mmol/L (98-107)
[2017-05-31 06:18] LABS: BASOPHILS % (AUTO) 0 % (0-1); EOSINOPHILS % (AUTO) 0 % (1-7); LYMPHOCYTES # (AUTO) 0.28 x10^3/uL (1-3.4); LYMPHOCYTES % (AUTO) 3 % (22-44); MD SCAN; MONOCYTES # (AUTO) 0.26 x10^3/uL (0.2-0.8); MONOCYTES % (AUTO) 3 % (2-9); NEUTROPHILS # (AUTO) 10.22 x10^3/uL (1.8-6.8); NEUTROPHILS % (AUTO) 95 % (42-75)
[2017-05-31 06:23] LABS: ALANINE AMINOTRANSFERASE 29 U/L (12-78); ALBUMIN 2.6 g/dL (3.4-5.0); ALKALINE PHOSPHATASE 58 U/L (45-117); ANION GAP 8 mmol/L (5-15); BILIRUBIN,TOTAL 0.5 mg/dL (0.2-1.0); CALCIUM 8.2 mg/dL (8.5-10.1); CREATININE 0.68 mg/dL (0.7-1.3); TOTAL PROTEIN 5.2 g/dL (6.4-8.2)
[2017-05-31 09:39] VITALS: BP 105/69
[2017-05-31] MEDS: ALLOPURINOL 300 MG TABLET PO SCH (12:12)
[2017-05-31] MEDS: ENOXAPARIN 40 MG/0.4 ML SQ SCH (12:12)
[2017-05-31] MEDS: PROCHLORPERAZINE 5 MG/ML, 2ML IVPush PRN (15:03)
[2017-05-31 15:10] VITALS: BP 124/82
[2017-05-31] MEDS: ONDANSETRON 16 MG in SODIUM CHLORIDE 0.9% 50 ML IVPB SCH (17:53)
[2017-05-31] MEDS: [UNRECOGNIZED DRUG - OTHER] IVPB SCH (18:32)
[2017-05-31] MEDS: DOXORUBICIN IVPB SCH (18:32)
[2017-05-31] MEDS: VINCRISTINE IVPB SCH (18:32)
[2017-05-31] MEDS: ETOPOSIDE IVPB SCH (18:32)
[2017-05-31 19:04] VITALS: BP 121/77
[2017-06-01] MEDS: predniSONE 50MG TABLET PO SCH ×2 (00:38→12:41)
[2017-06-01] MEDS: PROCHLORPERAZINE 5 MG/ML, 2ML IVPush PRN (01:02)
[2017-06-01 01:10] VITALS: BP 128/81
[2017-06-01] MEDS: OXYcodone IR 5MG TABLET PO PRN ×3 (02:48→21:43)
[2017-06-01 06:22] LABS: BASOPHILS % (AUTO) 0 % (0-1); EOSINOPHILS % (AUTO) 0 % (1-7); LYMPHOCYTES # (AUTO) 0.28 x10^3/uL (1-3.4); LYMPHOCYTES % (AUTO) 4 % (22-44); MD NO; MEAN CORPUSCULAR HEMOGLOBIN 29.8 pg (27.5-34.5); MEAN CORPUSCULAR VOLUME 87.5 fL (81-97); MEAN PLATELET VOLUME 8.4 fL (7.4-10.4); MONOCYTES # (AUTO) 0.12 x10^3/uL (0.2-0.8); MONOCYTES % (AUTO) 2 % (2-9); NEUTROPHILS # (AUTO) 6.04 x10^3/uL (1.8-6.8); NEUTROPHILS % (AUTO) 94 % (42-75); PLATELET COUNT 200 x10^3/uL (130-400); RED BLOOD COUNT 3.87 x10^6/uL (4.38-5.82); RED CELL DISTRIBUTION WIDTH 14.2 % (9.4-14.8)
[2017-06-01 06:35] LABS: ALANINE AMINOTRANSFERASE 39 U/L (12-78); ALBUMIN 2.8 g/dL (3.4-5.0); ANION GAP 7 mmol/L (5-15); CALCIUM 8.5 mg/dL (8.5-10.1); CHLORIDE 108 mmol/L (98-107); CREATININE 0.66 mg/dL (0.7-1.3)
[2017-06-01 06:37] LABS: ALKALINE PHOSPHATASE 60 U/L (45-117); BILIRUBIN,TOTAL 0.4 mg/dL (0.2-1.0); TOTAL PROTEIN 5.8 g/dL (6.4-8.2)
[2017-06-01 07:37] VITALS: BP 144/84
[2017-06-01] MEDS: ALLOPURINOL 300 MG TABLET PO SCH (09:12)
[2017-06-01] MEDS: NS + 20MEQ KCL 1,000 ML IV SCH ×2 (09:12→22:30)
[2017-06-01] MEDS: ENOXAPARIN 40 MG/0.4 ML SQ SCH (12:41)
[2017-06-01 13:55] VITALS: BP 156/93
[2017-06-01] MEDS: ONDANSETRON 16 MG in SODIUM CHLORIDE 0.9% 50 ML IVPB SCH (19:23)
[2017-06-01] MEDS ORDERED: SODIUM CHLORIDE 0.9% IV ONE (20:00)
[2017-06-01] MEDS ORDERED: CYCLOPHOSPHAMIDE IV ONE (20:00)
[2017-06-01 20:19] VITALS: BP 143/90
[2017-06-02] MEDS: predniSONE 50MG TABLET PO SCH (00:32)
[2017-06-02 01:21] VITALS: BP 124/80
[2017-06-02] MEDS: OXYcodone IR 5MG TABLET PO PRN (05:55)
[2017-06-02 06:25] LABS: MEAN CORPUSCULAR HEMOGLOBIN 29.7 pg (27.5-34.5); MEAN CORPUSCULAR HGB CONC 34.1 g/dL (33.2-36.2); MEAN PLATELET VOLUME 8.2 fL (7.4-10.4); PLATELET COUNT 195 x10^3/uL (130-400); RED BLOOD COUNT 3.88 x10^6/uL (4.38-5.82); RED CELL DISTRIBUTION WIDTH 14.3 % (9.4-14.8)
[2017-06-02 06:27] LABS: ALANINE AMINOTRANSFERASE 54 U/L (12-78); ALBUMIN 2.9 g/dL (3.4-5.0); ANION GAP 6 mmol/L (5-15); CALCIUM 8.3 mg/dL (8.5-10.1); CHLORIDE 107 mmol/L (98-107); CREATININE 0.68 mg/dL (0.7-1.3)
[2017-06-02 06:29] LABS: ALKALINE PHOSPHATASE 60 U/L (45-117); BILIRUBIN,TOTAL 0.6 mg/dL (0.2-1.0); TOTAL PROTEIN 5.6 g/dL (6.4-8.2)
[2017-06-02 07:27] LABS: BASOPHILS # (AUTO) 0.08 x10^3/uL (0-0.1); BASOPHILS % (AUTO) 2 % (0-1); EOSINOPHILS % (AUTO) 0 % (1-7); LYMPHOCYTES % (AUTO) 6 % (22-44); MD SCAN; MONOCYTES # (AUTO) 0.09 x10^3/uL (0.2-0.8); MONOCYTES % (AUTO) 2 % (2-9); NEUTROPHILS # (AUTO) 4.26 x10^3/uL (1.8-6.8); NEUTROPHILS % (AUTO) 90 % (42-75)
[2017-06-02 08:00] VITALS: BP 135/91
[2017-06-02] MEDS: ALLOPURINOL 300 MG TABLET PO SCH (08:49)
[2017-06-02] MEDS: ENOXAPARIN 40 MG/0.4 ML SQ SCH (11:46)
[2017-06-02] MEDS ORDERED: TBO-FILGRASTIM 480 MCG/0.8 ML SQ ONE (18:00)
== END 2017-06-02 13:10 | disposition home or self-care (01) | DRG 842 ==
LOC: 3NW 08:24
PROVIDERS: ADMIT Internal Medicine Hematology & Oncology; ATTEND Internal Medicine Hematology & Oncology
PROC: 05HB33Z Insertion of Infusion Device into Right Basilic Vein, Percutaneous Approach (ICD-10-PCS; principal; 2017-05-28)
PROC: B54MZZA Ultrasonography of Right Upper Extremity Veins, Guidance (ICD-10-PCS; 2017-05-28)
PROC: B54MZZA Ultrasonography of Right Upper Extremity Veins, Guidance (ICD-10-PCS; 2017-05-28)
DX: C83.30 Diffuse large B-cell lymphoma, unspecified site (principal); D75.82 Heparin induced thrombocytopenia (HIT); M54.2 Cervicalgia; Z79.899 Other long term (current) drug therapy
CPT/HCPCS: 36415; 36569; 76937; 77001; 80053; 83615; 83735; 84550; 85025; 86704; 86803; 87340; J1453; J1650; J2405; J3480; J9070; Q0162; C1751; J0780; J1200; J7030; J7050; J7512; J9000; J9181; J9310; J9370; S0028

== ENCOUNTER 2017-06-18 07:30 | Inpatient (IN) | payer BC ==
[~2017-06-18] VITALS: Ht 167.6 cm; Wt 78.0 kg
[2017-06-18 08:58] VITALS: BP 120/78
[2017-06-18] MEDS ORDERED: PLEASE ENTER HEIGHT AND WEIGHT MC SCH (09:00)
[2017-06-18] MEDS ORDERED: ALLO100T30 PO (09:22)
[2017-06-18 09:25] LABS: BASOPHILS # (AUTO) 0.02 x10^3/uL (0-0.1); BASOPHILS % (AUTO) 0 % (0-1); EOSINOPHILS # (AUTO) 0.01 x10^3/uL (0-0.4); EOSINOPHILS % (AUTO) 0 % (1-7); LYMPHOCYTES # (AUTO) 1.04 x10^3/uL (1-3.4); LYMPHOCYTES % (AUTO) 17 % (22-44); MD NO; MEAN CORPUSCULAR HEMOGLOBIN 29.7 pg (27.5-34.5); MEAN CORPUSCULAR HGB CONC 33.7 g/dL (33.2-36.2); MEAN CORPUSCULAR VOLUME 88.1 fL (81-97); MEAN PLATELET VOLUME 7.7 fL (7.4-10.4); MONOCYTES # (AUTO) 0.59 x10^3/uL (0.2-0.8); MONOCYTES % (AUTO) 10 % (2-9); NEUTROPHILS # (AUTO) 4.56 x10^3/uL (1.8-6.8); NEUTROPHILS % (AUTO) 73 % (42-75); PLATELET COUNT 290 x10^3/uL (130-400); RED BLOOD COUNT 3.83 x10^6/uL (4.38-5.82); RED CELL DISTRIBUTION WIDTH 15.5 % (9.4-14.8)
[2017-06-18 09:35] LABS: ALBUMIN 3.3 g/dL (3.4-5.0); ANION GAP 4 mmol/L (5-15); CALCIUM 8.1 mg/dL (8.5-10.1); CHLORIDE 110 mmol/L (98-107); CREATININE 0.71 mg/dL (0.7-1.3)
[2017-06-18 09:38] LABS: ALANINE AMINOTRANSFERASE 32 U/L (12-78); ALKALINE PHOSPHATASE 98 U/L (45-117); BILIRUBIN,TOTAL 0.2 mg/dL (0.2-1.0); TOTAL PROTEIN 6.1 g/dL (6.4-8.2)
[2017-06-18] MEDS ORDERED: FAMOTIDINE 20 MG/2 ML IVPush SCH (11:00)
[2017-06-18] MEDS ORDERED: ENOXAPARIN 40 MG/0.4 ML SQ SCH (11:00)
[2017-06-18] MEDS: NS + 20MEQ KCL 1,000 ML IV SCH (11:18)
[2017-06-18] MEDS ORDERED: DIPHENHYDRAMINE 50 MG/ML, 1ML IVPush ONE (11:30)
[2017-06-18] MEDS ORDERED: ACETAMINOPHEN 325 MG TABLET PO ONE (11:30)
[2017-06-18] MEDS ORDERED: FOSAPREPITANT 150 MG in SODIUM CHLORIDE 0.9% 145 ML IV ONE (12:00)
[2017-06-18] MEDS ORDERED: RITUXIMAB 700 MG in SODIUM CHLORIDE 0.9% 250 ML IV ONE (12:00)
[2017-06-18] MEDS: predniSONE 50MG TABLET PO SCH ×2 (12:15→20:59)
[2017-06-18 13:04] VITALS: BP 110/75
[2017-06-18] MEDS: ONDANSETRON 16 MG in SODIUM CHLORIDE 0.9% 50 ML IVPB SCH (16:51)
[2017-06-18] MEDS ORDERED: FOSAPREPITANT 150 MG in SODIUM CHLORIDE 0.9% 150 ML IV ONE (17:00)
[2017-06-18] MEDS: [UNRECOGNIZED DRUG - OTHER] IVPB SCH (18:16)
[2017-06-18] MEDS: DOXORUBICIN IVPB SCH (18:16)
[2017-06-18] MEDS: ETOPOSIDE IVPB SCH (18:16)
[2017-06-18] MEDS: VINCRISTINE IVPB SCH (18:16)
[2017-06-18 19:16] VITALS: BP 108/72
[2017-06-18] MEDS: OXYcodone/APAP 10/325MG TABLET PO PRN (21:00)
[2017-06-18] MEDS: ALLOPURINOL 300 MG TABLET PO SCH (21:00)
[2017-06-19] MEDS: NS + 20MEQ KCL 1,000 ML IV SCH ×2 (00:42→14:30)
[2017-06-19 03:41] VITALS: BP 100/62
[2017-06-19 08:01] VITALS: BP 100/57
[2017-06-19] MEDS ORDERED: LIDOCAINE-MPF 1%, 5ML ONE ×3 (08:49→09:00)
[2017-06-19] MEDS ORDERED: LIDOCAINE 2%, 10ML ONE (08:50)
[2017-06-19] MEDS ORDERED: SODIUM CHLORIDE 0.9% IT ONE (09:00)
[2017-06-19] MEDS ORDERED: METHOTREXATE/PF 2ML 12 MG in SODIUM CHLORIDE 0.9% 4.52 ML IT ONE (09:00)
[2017-06-19] MEDS ORDERED: METHOTREXATE IT ONE (09:00)
[2017-06-19] MEDS: OXYcodone/APAP 10/325MG TABLET PO PRN ×2 (10:23→22:04)
[2017-06-19 10:27] LABS: MEAN CORPUSCULAR HEMOGLOBIN 29.7 pg (27.5-34.5); MEAN CORPUSCULAR HGB CONC 33.4 g/dL (33.2-36.2); MEAN CORPUSCULAR VOLUME 88.8 fL (81-97); MEAN PLATELET VOLUME 7.3 fL (7.4-10.4); PLATELET COUNT 284 x10^3/uL (130-400); RED CELL DISTRIBUTION WIDTH 15.6 % (9.4-14.8)
[2017-06-19 10:33] LABS: ANION GAP 9 mmol/L (5-15); CALCIUM 7.7 mg/dL (8.5-10.1); CHLORIDE 112 mmol/L (98-107); CREATININE 0.78 mg/dL (0.7-1.3)
[2017-06-19 10:43] LABS: MD YES
[2017-06-19 10:45] LABS: BANDS%(MANUAL) 5 % (0-7); LYMPH#(MANUAL) 0.48 x10^3/uL (1-3.4); LYMPHS% (MANUAL) 3 % (22-44); MONOS#(MANUAL) 0.16 x10^3/uL (0.3-2.7); MONOS% (MANUAL) 1 % (2-9); SEG#(MANUAL) 14.47 x10^3/uL (1.8-6.8); SEGS% (MANUAL) 91 % (42-75)
[2017-06-19 10:47] LABS: <PLATELET ESTIMATE> ADEQUATE; <PLT MORPHOLOGY> NORMAL PLT MORPH; POLYCHROMASIA 1+
[2017-06-19 10:48] LABS: ANISOCYTOSIS 1+
[2017-06-19 11:14] LABS: GLUCOSE, CSF 79 mg/dL (40-80); TOTAL PROTEIN,CSF 46 mg/dL (15-45)
[2017-06-19] MEDS ORDERED: DIPHENHYDRAMINE 50 MG/ML, 1ML IVPush SCH (12:00)
[2017-06-19 13:20] VITALS: BP 108/69
[2017-06-19] MEDS: predniSONE 50MG TABLET PO SCH ×2 (14:31→20:58)
[2017-06-19] MEDS: ONDANSETRON 16 MG in SODIUM CHLORIDE 0.9% 50 ML IVPB SCH (17:42)
[2017-06-19] MEDS: VINCRISTINE IVPB SCH (18:09)
[2017-06-19] MEDS: [UNRECOGNIZED DRUG - OTHER] IVPB SCH (18:09)
[2017-06-19] MEDS: ETOPOSIDE IVPB SCH (18:09)
[2017-06-19] MEDS: DOXORUBICIN IVPB SCH (18:09)
[2017-06-19 19:01] VITALS: BP 118/75
[2017-06-19] MEDS: ALLOPURINOL 300 MG TABLET PO SCH (20:57)
[2017-06-20 01:22] VITALS: BP 121/81
[2017-06-20 02:38] LABS: MEAN CORPUSCULAR HEMOGLOBIN 29.6 pg (27.5-34.5); MEAN CORPUSCULAR HGB CONC 33.2 g/dL (33.2-36.2); MEAN PLATELET VOLUME 7.5 fL (7.4-10.4); PLATELET COUNT 273 x10^3/uL (130-400); RED BLOOD COUNT 3.37 x10^6/uL (4.38-5.82); RED CELL DISTRIBUTION WIDTH 17.9 % (9.4-14.8)
[2017-06-20 02:49] LABS: ANION GAP 7 mmol/L (5-15); CALCIUM 8.2 mg/dL (8.5-10.1); CHLORIDE 112 mmol/L (98-107)
[2017-06-20 03:01] LABS: BASOPHILS # (AUTO) 0.01 x10^3/uL (0-0.1); BASOPHILS % (AUTO) 0 % (0-1); EOSINOPHILS # (AUTO) 0.11 x10^3/uL (0-0.4); EOSINOPHILS % (AUTO) 1 % (1-7); LYMPHOCYTES % (AUTO) 3 % (22-44); MD SCAN; MONOCYTES # (AUTO) 0.04 x10^3/uL (0.2-0.8); MONOCYTES % (AUTO) 0 % (2-9); NEUTROPHILS # (AUTO) 12.04 x10^3/uL (1.8-6.8); NEUTROPHILS % (AUTO) 96 % (42-75)
[2017-06-20] MEDS: NS + 20MEQ KCL 1,000 ML IV SCH ×2 (04:15→15:16)
[2017-06-20 07:04] VITALS: BP 111/72
[2017-06-20] MEDS: predniSONE 50MG TABLET PO SCH ×2 (09:56→22:04)
[2017-06-20] MEDS ORDERED: DOCUSATE 100 MG CAPSULE PO ONE (10:00)
[2017-06-20] MEDS: ENOXAPARIN 40 MG/0.4 ML SQ SCH (12:15)
[2017-06-20 15:13] VITALS: BP 126/83
[2017-06-20 15:44] VITALS: BP 119/76
[2017-06-20] MEDS: ONDANSETRON 16 MG in SODIUM CHLORIDE 0.9% 50 ML IVPB SCH (17:38)
[2017-06-20] MEDS: OXYcodone/APAP 10/325MG TABLET PO PRN ×2 (18:04→22:15)
[2017-06-20] MEDS: ONDANSETRON ODT 4 MG PO PRN (18:04)
[2017-06-20 19:27] VITALS: BP 120/81
[2017-06-20] MEDS: DOXORUBICIN IVPB SCH (19:41)
[2017-06-20] MEDS: ETOPOSIDE IVPB SCH (19:41)
[2017-06-20] MEDS: VINCRISTINE IVPB SCH (19:41)
[2017-06-20] MEDS: [UNRECOGNIZED DRUG - OTHER] IVPB SCH (19:41)
[2017-06-20] MEDS: ALLOPURINOL 300 MG TABLET PO SCH (22:04)
[2017-06-20] MEDS: DOCUSATE 100 MG CAPSULE PO SCH (22:04)
[2017-06-21 01:45] VITALS: BP 112/74
[2017-06-21] MEDS: NS + 20MEQ KCL 1,000 ML IV SCH ×2 (06:25→19:19)
[2017-06-21 06:26] LABS: MEAN CORPUSCULAR HEMOGLOBIN 29.7 pg (27.5-34.5); MEAN CORPUSCULAR HGB CONC 33.5 g/dL (33.2-36.2); MEAN CORPUSCULAR VOLUME 88.8 fL (81-97); MEAN PLATELET VOLUME 7.9 fL (7.4-10.4); PLATELET COUNT 236 x10^3/uL (130-400); RED BLOOD COUNT 3.23 x10^6/uL (4.38-5.82)
[2017-06-21 06:28] LABS: ANION GAP 8 mmol/L (5-15); CALCIUM 8.1 mg/dL (8.5-10.1); CHLORIDE 112 mmol/L (98-107); CREATININE 0.64 mg/dL (0.7-1.3)
[2017-06-21 06:54] LABS: BASOPHILS # (AUTO) 0.01 x10^3/uL (0-0.1); BASOPHILS % (AUTO) 0 % (0-1); EOSINOPHILS % (AUTO) 0 % (1-7); LYMPHOCYTES # (AUTO) 0.25 x10^3/uL (1-3.4); LYMPHOCYTES % (AUTO) 3 % (22-44); MD SCAN; MONOCYTES # (AUTO) 0.12 x10^3/uL (0.2-0.8); MONOCYTES % (AUTO) 2 % (2-9); NEUTROPHILS # (AUTO) 7.52 x10^3/uL (1.8-6.8); NEUTROPHILS % (AUTO) 95 % (42-75); RED CELL DISTRIBUTION WIDTH 17.7 % (9.4-14.8)
[2017-06-21 08:23] VITALS: BP 110/72
[2017-06-21] MEDS: ONDANSETRON ODT 4 MG PO PRN ×2 (08:38→14:07)
[2017-06-21] MEDS: DOCUSATE 100 MG CAPSULE PO SCH ×3 (08:39→22:09)
[2017-06-21] MEDS: predniSONE 50MG TABLET PO SCH ×2 (08:39→22:08)
[2017-06-21] MEDS: ENOXAPARIN 40 MG/0.4 ML SQ SCH (10:28)
[2017-06-21] MEDS: PROMETHAZINE 25MG TABLET PO PRN ×2 (10:42→15:43)
[2017-06-21 13:01] VITALS: BP 132/83
[2017-06-21] MEDS: OXYcodone/APAP 10/325MG TABLET PO PRN ×2 (15:43→22:10)
[2017-06-21 18:55] VITALS: BP 102/65
[2017-06-21] MEDS: ONDANSETRON 16 MG in SODIUM CHLORIDE 0.9% 50 ML IVPB SCH (19:27)
[2017-06-21] MEDS: VINCRISTINE IVPB SCH (20:34)
[2017-06-21] MEDS: DOXORUBICIN IVPB SCH (20:34)
[2017-06-21] MEDS: ETOPOSIDE IVPB SCH (20:34)
[2017-06-21] MEDS: [UNRECOGNIZED DRUG - OTHER] IVPB SCH (20:34)
[2017-06-21 21:45] VITALS: BP 113/74
[2017-06-21] MEDS: ALLOPURINOL 300 MG TABLET PO SCH (22:10)
[2017-06-22 03:40] VITALS: BP 122/73
[2017-06-22 05:54] LABS: MEAN CORPUSCULAR HEMOGLOBIN 30.4 pg (27.5-34.5); MEAN CORPUSCULAR VOLUME 89.6 fL (81-97); MEAN PLATELET VOLUME 7.8 fL (7.4-10.4); PLATELET COUNT 207 x10^3/uL (130-400); RED BLOOD COUNT 3.16 x10^6/uL (4.38-5.82); RED CELL DISTRIBUTION WIDTH 16.8 % (9.4-14.8)
[2017-06-22 06:00] LABS: ANION GAP 7 mmol/L (5-15); CALCIUM 7.3 mg/dL (8.5-10.1); CHLORIDE 111 mmol/L (98-107); CREATININE 0.62 mg/dL (0.7-1.3)
[2017-06-22 06:21] LABS: BASOPHILS % (AUTO) 0 % (0-1); EOSINOPHILS # (AUTO) 0.01 x10^3/uL (0-0.4); EOSINOPHILS % (AUTO) 0 % (1-7); LYMPHOCYTES # (AUTO) 0.21 x10^3/uL (1-3.4); LYMPHOCYTES % (AUTO) 5 % (22-44); MD SCAN; MONOCYTES # (AUTO) 0.06 x10^3/uL (0.2-0.8); MONOCYTES % (AUTO) 1 % (2-9); NEUTROPHILS # (AUTO) 4.04 x10^3/uL (1.8-6.8); NEUTROPHILS % (AUTO) 94 % (42-75)
[2017-06-22 07:34] VITALS: BP 106/64
[2017-06-22] MEDS: DOCUSATE 100 MG CAPSULE PO SCH ×2 (09:00→21:00)
[2017-06-22] MEDS: NS + 20MEQ KCL 1,000 ML IV SCH ×2 (09:36→22:07)
[2017-06-22] MEDS: predniSONE 50MG TABLET PO SCH ×2 (09:36→21:01)
[2017-06-22] MEDS: ENOXAPARIN 40 MG/0.4 ML SQ SCH (11:15)
[2017-06-22] MEDS: PROMETHAZINE 25MG TABLET PO PRN (11:15)
[2017-06-22] MEDS: OXYcodone/APAP 10/325MG TABLET PO PRN ×2 (12:32→21:01)
[2017-06-22] MEDS: ONDANSETRON ODT 4 MG PO PRN (12:32)
[2017-06-22 14:13] VITALS: BP 128/80
[2017-06-22] MEDS: ONDANSETRON 16 MG in SODIUM CHLORIDE 0.9% 50 ML IVPB SCH (17:11)
[2017-06-22 19:06] VITALS: BP 128/84
[2017-06-22] MEDS ORDERED: CYCLOPHOSPHAMIDE IV ONE (21:00)
[2017-06-22] MEDS ORDERED: SODIUM CHLORIDE 0.9% IV ONE (21:00)
[2017-06-22] MEDS: ALLOPURINOL 300 MG TABLET PO SCH (21:01)
[2017-06-23 00:29] VITALS: BP 126/81
[2017-06-23] MEDS: OXYcodone/APAP 10/325MG TABLET PO PRN (05:35)
[2017-06-23] MEDS: ONDANSETRON ODT 4 MG PO PRN (05:35)
[2017-06-23 05:59] LABS: BASOPHILS % (AUTO) 0 % (0-1); EOSINOPHILS % (AUTO) 0 % (1-7); LYMPHOCYTES # (AUTO) 0.25 x10^3/uL (1-3.4); LYMPHOCYTES % (AUTO) 6 % (22-44); MD NO; MEAN CORPUSCULAR HEMOGLOBIN 30.9 pg (27.5-34.5); MEAN CORPUSCULAR HGB CONC 34.8 g/dL (33.2-36.2); MEAN CORPUSCULAR VOLUME 88.9 fL (81-97); MEAN PLATELET VOLUME 7.6 fL (7.4-10.4); MONOCYTES # (AUTO) 0.05 x10^3/uL (0.2-0.8); MONOCYTES % (AUTO) 1 % (2-9); NEUTROPHILS % (AUTO) 93 % (42-75); PLATELET COUNT 226 x10^3/uL (130-400); RED BLOOD COUNT 3.44 x10^6/uL (4.38-5.82); RED CELL DISTRIBUTION WIDTH 17.9 % (9.4-14.8)
[2017-06-23 06:08] LABS: ANION GAP 7 mmol/L (5-15); CALCIUM 8.3 mg/dL (8.5-10.1); CHLORIDE 108 mmol/L (98-107); CREATININE 0.67 mg/dL (0.7-1.3)
[2017-06-23 06:26] VITALS: BP 127/84
[2017-06-23] MEDS: DOCUSATE 100 MG CAPSULE PO SCH (07:22)
[2017-06-23] MEDS: PROMETHAZINE 25MG TABLET PO PRN (09:54)
[2017-06-23] MEDS: NS + 20MEQ KCL 1,000 ML IV SCH (10:57)
[2017-06-23] MEDS: ENOXAPARIN 40 MG/0.4 ML SQ SCH (10:57)
[2017-06-23 12:07] VITALS: BP 149/86
== END 2017-06-23 14:12 | disposition home or self-care (01) | DRG 847 ==
LOC: 3NW 07:35
PROVIDERS: ADMIT Internal Medicine Hematology & Oncology; ATTEND Internal Medicine Hematology & Oncology
PROC: 02HV33Z Insertion of Infusion Device into Superior Vena Cava, Percutaneous Approach (ICD-10-PCS; principal; 2017-06-18)
PROC: B548ZZA Ultrasonography of Superior Vena Cava, Guidance (ICD-10-PCS; 2017-06-18)
PROC: 3E0R305 Introduction of Other Antineoplastic into Spinal Canal, Percutaneous Approach (ICD-10-PCS; 2017-06-19)
DX: Z51.11 Encounter for antineoplastic chemotherapy (principal); C83.30 Diffuse large B-cell lymphoma, unspecified site; R22.1 Localized swelling, mass and lump, neck
CPT/HCPCS: 36415; 36569; 62270; 76937; 77001; 80048; 80053; 82945; 83615; 83735; 84157; 84550; 85025; 89051; J1453; J1650; J2405; J3480; J3490; J9070; J9250; Q0162; Q0169; C1751; J1200; J7030; J7050; J7512; J9000; J9181; J9310; J9370; S0028

== ENCOUNTER 2017-07-09 08:00 | Inpatient (IN) | payer BC ==
[~2017-07-09] VITALS: Ht 165.1 cm; Wt 76.4 kg
[~2017-07-09 08:00] MED LIST changes: +ALLO100T30 PO
[2017-07-09 09:15] VITALS: BP 128/87
[2017-07-09 12:35] VITALS: BP 111/76
[2017-07-09 13:14] LABS: BASOPHILS # (AUTO) 0.02 x10^3/uL (0-0.1); BASOPHILS % (AUTO) 0 % (0-1); EOSINOPHILS % (AUTO) 0 % (1-7); LYMPHOCYTES # (AUTO) 0.83 x10^3/uL (1-3.4); LYMPHOCYTES % (AUTO) 13 % (22-44); MD NO; MEAN CORPUSCULAR HEMOGLOBIN 30.3 pg (27.5-34.5); MEAN CORPUSCULAR HGB CONC 33.7 g/dL (33.2-36.2); MEAN CORPUSCULAR VOLUME 89.9 fL (81-97); MEAN PLATELET VOLUME 7.2 fL (7.4-10.4); MONOCYTES # (AUTO) 0.62 x10^3/uL (0.2-0.8); MONOCYTES % (AUTO) 10 % (2-9); NEUTROPHILS # (AUTO) 4.76 x10^3/uL (1.8-6.8); NEUTROPHILS % (AUTO) 76 % (42-75); PLATELET COUNT 311 x10^3/uL (130-400); RED BLOOD COUNT 3.39 x10^6/uL (4.38-5.82); RED CELL DISTRIBUTION WIDTH 19.2 % (9.4-14.8)
[2017-07-09 13:21] LABS: ALBUMIN 3.4 g/dL (3.4-5.0); ANION GAP 7 mmol/L (5-15); CALCIUM 8.7 mg/dL (8.5-10.1); CHLORIDE 108 mmol/L (98-107)
[2017-07-09 13:24] LABS: ALANINE AMINOTRANSFERASE 26 U/L (12-78); ALKALINE PHOSPHATASE 87 U/L (45-117); BILIRUBIN,TOTAL 0.4 mg/dL (0.2-1.0); CREATININE 0.79 mg/dL (0.7-1.3); TOTAL PROTEIN 6.3 g/dL (6.4-8.2)
[2017-07-09] MEDS ORDERED: LIDOCAINE-MPF 1%, 5ML ONE (13:24)
[2017-07-09] MEDS: NS + 20MEQ KCL 1,000 ML IV SCH (14:37)
[2017-07-09] MEDS: ONDANSETRON ODT 4 MG PO PRN (14:50)
[2017-07-09] MEDS: OXYcodone IR 5MG TABLET PO PRN ×2 (14:51→21:32)
[2017-07-09] MEDS ORDERED: FAMOTIDINE 20 MG/2 ML IVPush ONE (15:00)
[2017-07-09] MEDS ORDERED: ENOXAPARIN 40 MG/0.4 ML SQ ONE (15:00)
[2017-07-09] MEDS ORDERED: ACETAMINOPHEN 325 MG TABLET PO ONE (15:00)
[2017-07-09] MEDS ORDERED: DIPHENHYDRAMINE 50 MG/ML, 1ML IVPush ONE (15:00)
[2017-07-09] MEDS: ALLOPURINOL 100 MG TABLET PO SCH (15:14)
[2017-07-09] MEDS: predniSONE 50MG TABLET PO SCH (15:14)
[2017-07-09] MEDS ORDERED: RITUXIMAB IV ONE (15:30)
[2017-07-09] MEDS ORDERED: SODIUM CHLORIDE 0.9% IV ONE (15:30)
[2017-07-09 19:39] VITALS: BP 110/77
[2017-07-09] MEDS: ONDANSETRON 16 MG in SODIUM CHLORIDE 0.9% 50 ML IVPB SCH (20:47)
[2017-07-09] MEDS ORDERED: FOSAPREPITANT 150 MG in SODIUM CHLORIDE 0.9% 150 ML IV ONE (21:30)
[2017-07-09] MEDS: DOXORUBICIN IVPB SCH (22:20)
[2017-07-09] MEDS: [UNRECOGNIZED DRUG - OTHER] IVPB SCH (22:20)
[2017-07-09] MEDS: ETOPOSIDE IVPB SCH (22:20)
[2017-07-09] MEDS: VINCRISTINE IVPB SCH (22:20)
[2017-07-10] MEDS: ONDANSETRON ODT 4 MG PO PRN (03:16)
[2017-07-10] MEDS: predniSONE 50MG TABLET PO SCH ×3 (03:16→21:53)
[2017-07-10 03:20] VITALS: BP 112/69
[2017-07-10] MEDS: NS + 20MEQ KCL 1,000 ML IV SCH ×2 (04:22→18:06)
[2017-07-10] MEDS ORDERED: METHOTREXATE/PF 2ML 12 MG in SODIUM CHLORIDE 0.9% 4.52 ML IT ONE (09:00)
[2017-07-10 09:17] VITALS: BP 107/72
[2017-07-10 10:22] LABS: MEAN CORPUSCULAR HEMOGLOBIN 30.6 pg (27.5-34.5); MEAN CORPUSCULAR HGB CONC 33.6 g/dL (33.2-36.2); MEAN CORPUSCULAR VOLUME 90.9 fL (81-97); PLATELET COUNT 348 x10^3/uL (130-400); RED BLOOD COUNT 3.21 x10^6/uL (4.38-5.82); RED CELL DISTRIBUTION WIDTH 21.2 % (9.4-14.8)
[2017-07-10 10:25] LABS: ALANINE AMINOTRANSFERASE 23 U/L (12-78); ALBUMIN 3.2 g/dL (3.4-5.0); ANION GAP 8 mmol/L (5-15); CALCIUM 8.1 mg/dL (8.5-10.1); CHLORIDE 113 mmol/L (98-107); CREATININE 0.81 mg/dL (0.7-1.3)
[2017-07-10 10:28] LABS: ALKALINE PHOSPHATASE 78 U/L (45-117); BILIRUBIN,TOTAL 0.4 mg/dL (0.2-1.0); TOTAL PROTEIN 6.1 g/dL (6.4-8.2)
[2017-07-10 12:21] LABS: BASOPHILS # (AUTO) 0.01 x10^3/uL (0-0.1); BASOPHILS % (AUTO) 0 % (0-1); EOSINOPHILS # (AUTO) 0.11 x10^3/uL (0-0.4); EOSINOPHILS % (AUTO) 1 % (1-7); LYMPHOCYTES # (AUTO) 0.35 x10^3/uL (1-3.4); LYMPHOCYTES % (AUTO) 3 % (22-44); MD SCAN; MONOCYTES # (AUTO) 0.02 x10^3/uL (0.2-0.8); MONOCYTES % (AUTO) 0 % (2-9); NEUTROPHILS % (AUTO) 95 % (42-75)
[2017-07-10] MEDS ORDERED: LIDOCAINE-MPF 1%, 5ML ONE (14:08)
[2017-07-10] MEDS: ALLOPURINOL 100 MG TABLET PO SCH (15:29)
[2017-07-10] MEDS: OXYcodone IR 5MG TABLET PO PRN ×2 (15:29→21:53)
[2017-07-10 15:45] VITALS: BP 109/71
[2017-07-10 19:16] VITALS: BP 116/69
[2017-07-10] MEDS: ONDANSETRON 16 MG in SODIUM CHLORIDE 0.9% 50 ML IVPB SCH (21:53)
[2017-07-11 00:48] VITALS: BP 99/61
[2017-07-11] MEDS: [UNRECOGNIZED DRUG - OTHER] IVPB SCH (00:57)
[2017-07-11] MEDS: ETOPOSIDE IVPB SCH (00:57)
[2017-07-11] MEDS: DOXORUBICIN IVPB SCH (00:57)
[2017-07-11] MEDS: VINCRISTINE IVPB SCH (00:57)
[2017-07-11 06:04] LABS: MEAN CORPUSCULAR HEMOGLOBIN 30.6 pg (27.5-34.5); MEAN CORPUSCULAR HGB CONC 33.6 g/dL (33.2-36.2); MEAN CORPUSCULAR VOLUME 91.3 fL (81-97); MEAN PLATELET VOLUME 7.3 fL (7.4-10.4); PLATELET COUNT 321 x10^3/uL (130-400); RED BLOOD COUNT 3.01 x10^6/uL (4.38-5.82); RED CELL DISTRIBUTION WIDTH 20.4 % (9.4-14.8)
[2017-07-11 06:18] LABS: CHLORIDE 112 mmol/L (98-107)
[2017-07-11 06:23] LABS: ALANINE AMINOTRANSFERASE 20 U/L (12-78); ALKALINE PHOSPHATASE 66 U/L (45-117); ANION GAP 8 mmol/L (5-15); BILIRUBIN,TOTAL 0.2 mg/dL (0.2-1.0); CALCIUM 8.6 mg/dL (8.5-10.1); CREATININE 0.65 mg/dL (0.7-1.3); TOTAL PROTEIN 5.5 g/dL (6.4-8.2)
[2017-07-11 06:38] LABS: BASOPHILS % (AUTO) 0 % (0-1); EOSINOPHILS % (AUTO) 0 % (1-7); LYMPHOCYTES # (AUTO) 0.26 x10^3/uL (1-3.4); LYMPHOCYTES % (AUTO) 2 % (22-44); MD SCAN; MONOCYTES # (AUTO) 0.17 x10^3/uL (0.2-0.8); MONOCYTES % (AUTO) 1 % (2-9); NEUTROPHILS # (AUTO) 12.09 x10^3/uL (1.8-6.8); NEUTROPHILS % (AUTO) 97 % (42-75)
[2017-07-11] MEDS: ALLOPURINOL 100 MG TABLET PO SCH (07:29)
[2017-07-11] MEDS: predniSONE 50MG TABLET PO SCH ×2 (07:29→21:37)
[2017-07-11] MEDS: NS + 20MEQ KCL 1,000 ML IV SCH ×2 (07:29→21:17)
[2017-07-11 07:42] VITALS: BP 120/78
[2017-07-11] MEDS: ONDANSETRON ODT 4 MG PO PRN (10:25)
[2017-07-11 13:00] VITALS: BP 129/78
[2017-07-11] MEDS: ENOXAPARIN 40 MG/0.4 ML SQ SCH (14:41)
[2017-07-11] MEDS: OXYcodone IR 5MG TABLET PO PRN ×2 (14:41→21:44)
[2017-07-11 19:17] VITALS: BP 113/74
[2017-07-11] MEDS: ONDANSETRON 16 MG in SODIUM CHLORIDE 0.9% 50 ML IVPB SCH (21:38)
[2017-07-12] MEDS: DOXORUBICIN IVPB SCH (00:47)
[2017-07-12] MEDS: ETOPOSIDE IVPB SCH (00:47)
[2017-07-12] MEDS: [UNRECOGNIZED DRUG - OTHER] IVPB SCH (00:47)
[2017-07-12] MEDS: VINCRISTINE IVPB SCH (00:47)
[2017-07-12 00:57] VITALS: BP 116/79
[2017-07-12] MEDS: ONDANSETRON ODT 4 MG PO PRN ×2 (03:25→09:13)
[2017-07-12 03:47] LABS: MEAN CORPUSCULAR HEMOGLOBIN 31.2 pg (27.5-34.5); MEAN CORPUSCULAR VOLUME 91.6 fL (81-97); MEAN PLATELET VOLUME 7.3 fL (7.4-10.4); PLATELET COUNT 280 x10^3/uL (130-400); RED BLOOD COUNT 2.85 x10^6/uL (4.38-5.82); RED CELL DISTRIBUTION WIDTH 21.5 % (9.4-14.8)
[2017-07-12 03:50] LABS: ALANINE AMINOTRANSFERASE 24 U/L (12-78); ALBUMIN 2.8 g/dL (3.4-5.0); ANION GAP 7 mmol/L (5-15); CHLORIDE 112 mmol/L (98-107); CREATININE 0.65 mg/dL (0.7-1.3)
[2017-07-12 03:52] LABS: ALKALINE PHOSPHATASE 60 U/L (45-117); BILIRUBIN,TOTAL 0.2 mg/dL (0.2-1.0)
[2017-07-12 04:06] LABS: MD SCAN
[2017-07-12 04:07] LABS: BASOPHILS % (AUTO) 0 % (0-1); EOSINOPHILS % (AUTO) 0 % (1-7); LYMPHOCYTES # (AUTO) 0.18 x10^3/uL (1-3.4); LYMPHOCYTES % (AUTO) 2 % (22-44); MONOCYTES # (AUTO) 0.17 x10^3/uL (0.2-0.8); MONOCYTES % (AUTO) 2 % (2-9); NEUTROPHILS # (AUTO) 7.73 x10^3/uL (1.8-6.8); NEUTROPHILS % (AUTO) 96 % (42-75)
[2017-07-12 07:20] VITALS: BP 124/72
[2017-07-12] MEDS: predniSONE 50MG TABLET PO SCH ×2 (09:03→20:45)
[2017-07-12] MEDS: ALLOPURINOL 100 MG TABLET PO SCH (09:03)
[2017-07-12] MEDS: PROMETHAZINE 25MG TABLET PO PRN ×2 (11:02→17:59)
[2017-07-12] MEDS: NS + 20MEQ KCL 1,000 ML IV SCH (12:59)
[2017-07-12 13:44] VITALS: BP 129/86
[2017-07-12] MEDS: ENOXAPARIN 40 MG/0.4 ML SQ SCH (15:10)
[2017-07-12] MEDS: OXYcodone IR 5MG TABLET PO PRN (17:59)
[2017-07-12 19:03] VITALS: BP 113/68
[2017-07-12] MEDS ORDERED: FOSAPREPITANT 150 MG in SODIUM CHLORIDE 0.9% 150 ML IV ONE (21:30)
[2017-07-12] MEDS: ONDANSETRON 16 MG in SODIUM CHLORIDE 0.9% 50 ML IVPB SCH (21:38)
[2017-07-13] MEDS ORDERED: ETOPOSIDE IVPB ONE (01:00)
[2017-07-13] MEDS ORDERED: DOXORUBICIN IVPB ONE (01:00)
[2017-07-13] MEDS ORDERED: [UNRECOGNIZED DRUG - OTHER] IVPB ONE (01:00)
[2017-07-13] MEDS ORDERED: VINCRISTINE IVPB ONE (01:00)
[2017-07-13 01:09] VITALS: BP 113/71
[2017-07-13] MEDS: NS + 20MEQ KCL 1,000 ML IV SCH ×2 (03:13→16:05)
[2017-07-13] MEDS: ONDANSETRON ODT 4 MG PO PRN ×3 (03:29→18:28)
[2017-07-13 03:42] LABS: MEAN CORPUSCULAR HEMOGLOBIN 30.5 pg (27.5-34.5); MEAN CORPUSCULAR HGB CONC 33.8 g/dL (33.2-36.2); MEAN CORPUSCULAR VOLUME 90.2 fL (81-97); MEAN PLATELET VOLUME 7.1 fL (7.4-10.4); PLATELET COUNT 282 x10^3/uL (130-400); RED CELL DISTRIBUTION WIDTH 20.3 % (9.4-14.8)
[2017-07-13 03:43] LABS: MD YES
[2017-07-13 03:54] LABS: ALANINE AMINOTRANSFERASE 31 U/L (12-78); ALBUMIN 2.8 g/dL (3.4-5.0); ANION GAP 8 mmol/L (5-15); ANISOCYTOSIS 1+; BAND#(MANUAL) 0.19 x10^3/uL; BANDS%(MANUAL) 4 % (0-7); CALCIUM 8.3 mg/dL (8.5-10.1); CHLORIDE 111 mmol/L (98-107); CREATININE 0.62 mg/dL (0.7-1.3); LYMPH#(MANUAL) 0.09 x10^3/uL (1-3.4); LYMPHS% (MANUAL) 2 % (22-44); SEG#(MANUAL) 4.42 x10^3/uL (1.8-6.8); SEGS% (MANUAL) 94 % (42-75)
[2017-07-13 03:55] LABS: OVALOCYTES 1+; TEAR DROPS 1+
[2017-07-13 03:56] LABS: ALKALINE PHOSPHATASE 58 U/L (45-117); BILIRUBIN,TOTAL 0.3 mg/dL (0.2-1.0); TOTAL PROTEIN 5.1 g/dL (6.4-8.2)
[2017-07-13 03:57] LABS: <PLATELET ESTIMATE> ADEQUATE; <PLT MORPHOLOGY> NORMAL PLT MORPH
[2017-07-13 07:32] VITALS: BP 120/69
[2017-07-13] MEDS: predniSONE 50MG TABLET PO SCH ×2 (08:16→20:33)
[2017-07-13] MEDS: ALLOPURINOL 100 MG TABLET PO SCH (08:16)
[2017-07-13] MEDS: PROMETHAZINE 25MG TABLET PO PRN ×3 (08:20→20:34)
[2017-07-13] MEDS: OXYcodone IR 5MG TABLET PO PRN ×2 (12:37→21:46)
[2017-07-13 13:35] VITALS: BP 112/69
[2017-07-13] MEDS: ENOXAPARIN 40 MG/0.4 ML SQ SCH (14:13)
[2017-07-13 19:19] VITALS: BP 123/77
[2017-07-13] MEDS: ONDANSETRON 16 MG in SODIUM CHLORIDE 0.9% 50 ML IVPB SCH (21:36)
[2017-07-14 01:49] VITALS: BP 112/70
[2017-07-14] MEDS: ONDANSETRON ODT 4 MG PO PRN (01:51)
[2017-07-14] MEDS: PROMETHAZINE 25MG TABLET PO PRN (02:48)
[2017-07-14] MEDS ORDERED: CYCLOPHOSPHAMIDE IV ONE (03:00)
[2017-07-14] MEDS ORDERED: SODIUM CHLORIDE 0.9% IV ONE (03:00)
[2017-07-14 04:46] LABS: ALANINE AMINOTRANSFERASE 29 U/L (12-78); ALBUMIN 2.6 g/dL (3.4-5.0); ANION GAP 5 mmol/L (5-15); CALCIUM 7.6 mg/dL (8.5-10.1); CHLORIDE 110 mmol/L (98-107); CREATININE 0.52 mg/dL (0.7-1.3)
[2017-07-14 04:49] LABS: ALKALINE PHOSPHATASE 51 U/L (45-117); BILIRUBIN,TOTAL 0.4 mg/dL (0.2-1.0); TOTAL PROTEIN 4.7 g/dL (6.4-8.2)
[2017-07-14 04:58] LABS: MEAN CORPUSCULAR HEMOGLOBIN 30.6 pg (27.5-34.5); MEAN CORPUSCULAR HGB CONC 33.6 g/dL (33.2-36.2); MEAN CORPUSCULAR VOLUME 91.1 fL (81-97); MEAN PLATELET VOLUME 7.4 fL (7.4-10.4); PLATELET COUNT 238 x10^3/uL (130-400); RED BLOOD COUNT 2.64 x10^6/uL (4.38-5.82); RED CELL DISTRIBUTION WIDTH 19.9 % (9.4-14.8)
[2017-07-14] MEDS: NS + 20MEQ KCL 1,000 ML IV SCH (05:43)
[2017-07-14 06:26] LABS: MD YES
[2017-07-14 06:32] LABS: ANISOCYTOSIS 1+; BAND#(MANUAL) 0.07 x10^3/uL; BANDS%(MANUAL) 2 % (0-7); LYMPH#(MANUAL) 0.18 x10^3/uL (1-3.4); LYMPHS% (MANUAL) 5 % (22-44); MONOS#(MANUAL) 0.11 x10^3/uL (0.3-2.7); MONOS% (MANUAL) 3 % (2-9); OVALOCYTES 1+; REACTIVE LYMPHS # (MANUAL) 0.04 x10^3/uL (0-0); REACTIVE LYMPHS % (MANUAL) 1 % (0-0); SEGS% (MANUAL) 89 % (42-75); TEAR DROPS 1+
[2017-07-14 06:33] LABS: <PLT MORPHOLOGY> NORMAL PLT MORPH
[2017-07-14 06:35] LABS: <PLATELET ESTIMATE> ADEQUATE
[2017-07-14 08:02] VITALS: BP 111/70
[2017-07-14] MEDS ORDERED: ACETAMINOPHEN 325 MG TABLET PO ONE (11:00)
[2017-07-14] MEDS ORDERED: DIPHENHYDRAMINE 50 MG/ML, 1ML IVPush ONE (11:00)
[2017-07-14] MEDS: ALLOPURINOL 100 MG TABLET PO SCH (11:37)
[2017-07-14] MEDS ORDERED: LOPERAMIDE 2 MG CAPSULE ONE (13:29)
[2017-07-14] MEDS ORDERED: LOPERAMIDE 2 MG CAPSULE PO PRN (13:30)
[2017-07-14 13:41] VITALS: BP 123/76
[2017-07-14 14:00] VITALS: BP 116/71
[2017-07-14] MEDS: ENOXAPARIN 40 MG/0.4 ML SQ SCH (15:00)
[2017-07-14 15:30] VITALS: BP 116/71
== END 2017-07-14 16:10 | disposition home or self-care (01) | DRG 847 ==
LOC: 3NW 08:52
PROVIDERS: ADMIT Internal Medicine Hematology & Oncology; ATTEND Internal Medicine Hematology & Oncology
PROC: 02HV33Z Insertion of Infusion Device into Superior Vena Cava, Percutaneous Approach (ICD-10-PCS; principal; 2017-07-09)
PROC: B5181ZA Fluoroscopy of Superior Vena Cava using Low Osmolar Contrast, Guidance (ICD-10-PCS; 2017-07-09)
PROC: B548ZZA Ultrasonography of Superior Vena Cava, Guidance (ICD-10-PCS; 2017-07-09)
PROC: 009U3ZZ Drainage of Spinal Canal, Percutaneous Approach (ICD-10-PCS; 2017-07-10)
PROC: B01B1ZZ Fluoroscopy of Spinal Cord using Low Osmolar Contrast (ICD-10-PCS; 2017-07-10)
PROC: 30233N1 Transfusion of Nonautologous Red Blood Cells into Peripheral Vein, Percutaneous Approach (ICD-10-PCS; 2017-07-14)
DX: Z51.11 Encounter for antineoplastic chemotherapy (principal); C83.30 Diffuse large B-cell lymphoma, unspecified site; D64.9 Anemia, unspecified
CPT/HCPCS: 36415; 36569; 62270; 76937; 77001; 80053; 83615; 83735; 84550; 85025; 86850; 86900; 86923; J1453; J1650; J2405; J3480; J9000; J9070; J9181; J9250; Q0162; Q0169; C1751; J1200; J7030; J7050; J7512; J9310; J9370; P9016; S0028

== ENCOUNTER → 2017-07-24 | Outpatient (CLI) | payer BC ==
[~2017-07-24] MED LIST changes: +GADOBUTROL 7.5 MMOL/7.5 ML PFS ONE
== END ==
LOC: CFH 12:13
PROVIDERS: ATTEND Internal Medicine Hematology & Oncology
DX: M48.02 Spinal stenosis, cervical region (principal); Z85.72 Personal history of non-Hodgkin lymphomas; R20.2 Paresthesia of skin
CPT/HCPCS: 70543; 72156; A9585

== ENCOUNTER 2017-07-30 09:04 | Inpatient (IN) | payer BC ==
[~2017-07-30] VITALS: Ht 167.6 cm; Wt 76.5 kg
[~2017-07-30 09:04] MED LIST changes: -GADOBUTROL 7.5 MMOL/7.5 ML PFS ONE
[2017-07-30 09:51] VITALS: BP 126/84
[2017-07-30 10:12] LABS: ALANINE AMINOTRANSFERASE 28 U/L (12-78); ALBUMIN 3.5 g/dL (3.4-5.0); ANION GAP 6 mmol/L (5-15); CALCIUM 8.1 mg/dL (8.5-10.1); CHLORIDE 111 mmol/L (98-107); CREATININE 0.66 mg/dL (0.7-1.3)
[2017-07-30 10:14] LABS: ALKALINE PHOSPHATASE 87 U/L (45-117); BILIRUBIN,TOTAL 0.2 mg/dL (0.2-1.0); MEAN CORPUSCULAR HEMOGLOBIN 30.5 pg (27.5-34.5); MEAN CORPUSCULAR HGB CONC 33.4 g/dL (33.2-36.2); MEAN CORPUSCULAR VOLUME 91.4 fL (81-97); MEAN PLATELET VOLUME 7.1 fL (7.4-10.4); PLATELET COUNT 304 x10^3/uL (130-400); RED BLOOD COUNT 3.41 x10^6/uL (4.38-5.82); RED CELL DISTRIBUTION WIDTH 20.3 % (9.4-14.8); TOTAL PROTEIN 6.2 g/dL (6.4-8.2)
[2017-07-30 10:20] LABS: BASOPHILS # (AUTO) 0.01 x10^3/uL (0-0.1); BASOPHILS % (AUTO) 0 % (0-1); EOSINOPHILS # (AUTO) 0.01 x10^3/uL (0-0.4); EOSINOPHILS % (AUTO) 0 % (1-7); LYMPHOCYTES # (AUTO) 0.72 x10^3/uL (1-3.4); LYMPHOCYTES % (AUTO) 13 % (22-44); MD SCAN; MONOCYTES # (AUTO) 0.67 x10^3/uL (0.2-0.8); MONOCYTES % (AUTO) 12 % (2-9); NEUTROPHILS # (AUTO) 4.28 x10^3/uL (1.8-6.8); NEUTROPHILS % (AUTO) 75 % (42-75)
[2017-07-30] MEDS ORDERED: LIDOCAINE-MPF 1%, 2ML ONE (11:11)
[2017-07-30] MEDS ORDERED: OXYcodone IR 5MG TABLET PO PRN (12:30)
[2017-07-30] MEDS: predniSONE 50MG TABLET PO SCH ×2 (12:45→23:00)
[2017-07-30] MEDS: ENOXAPARIN 40 MG/0.4 ML SQ SCH (12:46)
[2017-07-30] MEDS ORDERED: FAMOTIDINE 20 MG/2 ML IVPush ONE (13:00)
[2017-07-30] MEDS ORDERED: ACETAMINOPHEN 325 MG TABLET PO ONE (13:00)
[2017-07-30] MEDS ORDERED: DIPHENHYDRAMINE 50 MG/ML, 1ML IVPush ONE (13:00)
[2017-07-30] MEDS: NS + 20MEQ KCL 1,000 ML IV SCH (13:01)
[2017-07-30] MEDS: ONDANSETRON 16 MG in SODIUM CHLORIDE 0.9% 50 ML IVPB SCH (13:07)
[2017-07-30] MEDS ORDERED: FOSAPREPITANT 150 MG in SODIUM CHLORIDE 0.9% 150 ML IV ONE (13:30)
[2017-07-30] MEDS ORDERED: RITUXIMAB 700 MG in SODIUM CHLORIDE 0.9% 250 ML IV ONE (14:00)
[2017-07-30 16:33] VITALS: BP 106/73
[2017-07-30 19:28] VITALS: BP 120/84
[2017-07-30] MEDS: VINCRISTINE IVPB SCH (20:11)
[2017-07-30] MEDS: ETOPOSIDE IVPB SCH (20:11)
[2017-07-30] MEDS: DOXORUBICIN IVPB SCH (20:11)
[2017-07-30] MEDS: [UNRECOGNIZED DRUG - OTHER] IVPB SCH (20:11)
[2017-07-30] MEDS: ALLOPURINOL 300 MG TABLET PO SCH (20:19)
[2017-07-30] MEDS: OXYcodone/APAP 10/325MG TABLET PO PRN (20:19)
[2017-07-31] MEDS: NS + 20MEQ KCL 1,000 ML IV SCH ×2 (01:23→15:49)
[2017-07-31 04:00] VITALS: BP 123/85
[2017-07-31 04:58] LABS: MEAN CORPUSCULAR HEMOGLOBIN 31.3 pg (27.5-34.5); MEAN CORPUSCULAR HGB CONC 33.8 g/dL (33.2-36.2); MEAN CORPUSCULAR VOLUME 92.6 fL (81-97); MEAN PLATELET VOLUME 7.2 fL (7.4-10.4); PLATELET COUNT 289 x10^3/uL (130-400); RED BLOOD COUNT 3.17 x10^6/uL (4.38-5.82); RED CELL DISTRIBUTION WIDTH 21.4 % (9.4-14.8)
[2017-07-31 05:00] LABS: ANION GAP 6 mmol/L (5-15); CALCIUM 8.5 mg/dL (8.5-10.1); CHLORIDE 112 mmol/L (98-107); CREATININE 0.82 mg/dL (0.7-1.3)
[2017-07-31 05:53] LABS: BASOPHILS % (AUTO) 0 % (0-1); EOSINOPHILS % (AUTO) 0 % (1-7); LYMPHOCYTES # (AUTO) 0.38 x10^3/uL (1-3.4); LYMPHOCYTES % (AUTO) 4 % (22-44); MD SCAN; MONOCYTES # (AUTO) 0.02 x10^3/uL (0.2-0.8); MONOCYTES % (AUTO) 0 % (2-9); NEUTROPHILS # (AUTO) 8.53 x10^3/uL (1.8-6.8); NEUTROPHILS % (AUTO) 96 % (42-75)
[2017-07-31 07:56] VITALS: BP 120/75
[2017-07-31] MEDS: predniSONE 50MG TABLET PO SCH ×2 (08:40→21:30)
[2017-07-31] MEDS ORDERED: METHOTREXATE/PF 2ML 12 MG in SODIUM CHLORIDE 0.9% 4.52 ML IT ONE (10:00)
[2017-07-31] MEDS: OXYcodone/APAP 10/325MG TABLET PO PRN ×2 (10:50→21:30)
[2017-07-31] MEDS ORDERED: LIDOCAINE-MPF 1%, 2ML ONE (10:54)
[2017-07-31] MEDS: ONDANSETRON 16 MG in SODIUM CHLORIDE 0.9% 50 ML IVPB SCH (13:35)
[2017-07-31 15:08] VITALS: BP 119/74
[2017-07-31 19:40] VITALS: BP 119/82
[2017-07-31] MEDS: ALLOPURINOL 300 MG TABLET PO SCH (21:30)
[2017-07-31] MEDS: ETOPOSIDE IVPB SCH (22:15)
[2017-07-31] MEDS: VINCRISTINE IVPB SCH (22:15)
[2017-07-31] MEDS: [UNRECOGNIZED DRUG - OTHER] IVPB SCH (22:15)
[2017-07-31] MEDS: DOXORUBICIN IVPB SCH (22:15)
[2017-07-31] MEDS: PROMETHAZINE 25MG TABLET PO PRN (23:01)
[2017-08-01 01:12] VITALS: BP 110/73
[2017-08-01] MEDS: NS + 20MEQ KCL 1,000 ML IV SCH ×2 (04:57→18:24)
[2017-08-01 05:38] LABS: ANION GAP 6 mmol/L (5-15); CALCIUM 8.6 mg/dL (8.5-10.1); CHLORIDE 114 mmol/L (98-107); CREATININE 0.64 mg/dL (0.7-1.3)
[2017-08-01 05:41] LABS: MEAN CORPUSCULAR HEMOGLOBIN 30.8 pg (27.5-34.5); MEAN CORPUSCULAR HGB CONC 33.1 g/dL (33.2-36.2); MEAN CORPUSCULAR VOLUME 93.1 fL (81-97); MEAN PLATELET VOLUME 7.5 fL (7.4-10.4); PLATELET COUNT 253 x10^3/uL (130-400); RED BLOOD COUNT 2.94 x10^6/uL (4.38-5.82); RED CELL DISTRIBUTION WIDTH 22.2 % (9.4-14.8)
[2017-08-01 06:15] LABS: BASOPHILS % (AUTO) 0 % (0-1); EOSINOPHILS % (AUTO) 0 % (1-7); LYMPHOCYTES % (AUTO) 3 % (22-44); MD SCAN; MONOCYTES # (AUTO) 0.11 x10^3/uL (0.2-0.8); MONOCYTES % (AUTO) 1 % (2-9); NEUTROPHILS # (AUTO) 9.66 x10^3/uL (1.8-6.8); NEUTROPHILS % (AUTO) 96 % (42-75)
[2017-08-01 08:02] VITALS: BP 114/75
[2017-08-01] MEDS: predniSONE 50MG TABLET PO SCH ×2 (08:48→21:33)
[2017-08-01] MEDS: ENOXAPARIN 40 MG/0.4 ML SQ SCH (13:33)
[2017-08-01] MEDS: OXYcodone/APAP 10/325MG TABLET PO PRN ×2 (13:38→21:33)
[2017-08-01 13:58] VITALS: BP 140/94
[2017-08-01] MEDS: ONDANSETRON 16 MG in SODIUM CHLORIDE 0.9% 50 ML IVPB SCH (14:20)
[2017-08-01 19:42] VITALS: BP 120/80
[2017-08-01] MEDS: ALLOPURINOL 300 MG TABLET PO SCH (21:33)
[2017-08-01] MEDS: DOXORUBICIN IVPB SCH (22:14)
[2017-08-01] MEDS: ETOPOSIDE IVPB SCH (22:14)
[2017-08-01] MEDS: VINCRISTINE IVPB SCH (22:14)
[2017-08-01] MEDS: [UNRECOGNIZED DRUG - OTHER] IVPB SCH (22:14)
[2017-08-02 01:56] VITALS: BP 94/61
[2017-08-02 04:28] LABS: MEAN CORPUSCULAR HGB CONC 33.4 g/dL (33.2-36.2); MEAN PLATELET VOLUME 7.3 fL (7.4-10.4); PLATELET COUNT 218 x10^3/uL (130-400); RED BLOOD COUNT 2.89 x10^6/uL (4.38-5.82); RED CELL DISTRIBUTION WIDTH 21.9 % (9.4-14.8)
[2017-08-02 04:40] LABS: ANION GAP 6 mmol/L (5-15); CALCIUM 8.1 mg/dL (8.5-10.1); CHLORIDE 113 mmol/L (98-107); CREATININE 0.65 mg/dL (0.7-1.3)
[2017-08-02 05:07] LABS: BASOPHILS % (AUTO) 0 % (0-1); EOSINOPHILS % (AUTO) 0 % (1-7); LYMPHOCYTES # (AUTO) 0.18 x10^3/uL (1-3.4); LYMPHOCYTES % (AUTO) 3 % (22-44); MD SCAN; MONOCYTES # (AUTO) 0.17 x10^3/uL (0.2-0.8); MONOCYTES % (AUTO) 3 % (2-9); NEUTROPHILS # (AUTO) 6.47 x10^3/uL (1.8-6.8); NEUTROPHILS % (AUTO) 95 % (42-75)
[2017-08-02] MEDS: NS + 20MEQ KCL 1,000 ML IV SCH ×2 (06:21→18:26)
[2017-08-02 08:11] VITALS: BP 102/60
[2017-08-02] MEDS: ONDANSETRON ODT 4 MG PO PRN ×2 (08:13→21:18)
[2017-08-02] MEDS: predniSONE 50MG TABLET PO SCH ×2 (08:13→21:18)
[2017-08-02] MEDS: ENOXAPARIN 40 MG/0.4 ML SQ SCH (12:14)
[2017-08-02] MEDS: PROMETHAZINE 25MG TABLET PO PRN (12:14)
[2017-08-02] MEDS: OXYcodone/APAP 10/325MG TABLET PO PRN ×2 (12:19→21:18)
[2017-08-02] MEDS: ONDANSETRON 16 MG in SODIUM CHLORIDE 0.9% 50 ML IVPB SCH (13:54)
[2017-08-02 14:48] VITALS: BP 110/71
[2017-08-02] MEDS ORDERED: FOSAPREPITANT 150 MG in SODIUM CHLORIDE 0.9% 150 ML IV ONE (18:00)
[2017-08-02 20:00] VITALS: BP 100/48
[2017-08-02] MEDS: ALLOPURINOL 300 MG TABLET PO SCH (21:18)
[2017-08-02] MEDS: ETOPOSIDE IVPB SCH (22:26)
[2017-08-02] MEDS: [UNRECOGNIZED DRUG - OTHER] IVPB SCH (22:26)
[2017-08-02] MEDS: VINCRISTINE IVPB SCH (22:26)
[2017-08-02] MEDS: DOXORUBICIN IVPB SCH (22:26)
[2017-08-03 05:37] VITALS: BP 108/68
[2017-08-03 05:46] LABS: BASOPHILS # (AUTO) 0.03 x10^3/uL (0-0.1); BASOPHILS % (AUTO) 1 % (0-1); EOSINOPHILS % (AUTO) 0 % (1-7); LYMPHOCYTES # (AUTO) 0.21 x10^3/uL (1-3.4); LYMPHOCYTES % (AUTO) 5 % (22-44); MD NO; MEAN CORPUSCULAR HEMOGLOBIN 31.3 pg (27.5-34.5); MEAN CORPUSCULAR HGB CONC 33.8 g/dL (33.2-36.2); MEAN CORPUSCULAR VOLUME 92.7 fL (81-97); MEAN PLATELET VOLUME 7.5 fL (7.4-10.4); MONOCYTES # (AUTO) 0.13 x10^3/uL (0.2-0.8); MONOCYTES % (AUTO) 3 % (2-9); NEUTROPHILS # (AUTO) 4.02 x10^3/uL (1.8-6.8); NEUTROPHILS % (AUTO) 92 % (42-75); PLATELET COUNT 233 x10^3/uL (130-400); RED BLOOD COUNT 2.91 x10^6/uL (4.38-5.82); RED CELL DISTRIBUTION WIDTH 20.6 % (9.4-14.8)
[2017-08-03 05:55] LABS: ANION GAP 8 mmol/L (5-15); CALCIUM 8.5 mg/dL (8.5-10.1); CHLORIDE 112 mmol/L (98-107); CREATININE 0.65 mg/dL (0.7-1.3)
[2017-08-03] MEDS: OXYcodone/APAP 10/325MG TABLET PO PRN ×3 (09:16→23:17)
[2017-08-03] MEDS: predniSONE 50MG TABLET PO SCH ×2 (09:16→21:46)
[2017-08-03] MEDS: ONDANSETRON ODT 4 MG PO PRN ×2 (09:17→19:15)
[2017-08-03 10:02] VITALS: BP 108/63
[2017-08-03] MEDS: NS + 20MEQ KCL 1,000 ML IV SCH ×2 (10:59→23:17)
[2017-08-03 13:22] VITALS: BP 136/86
[2017-08-03] MEDS: ONDANSETRON 16 MG in SODIUM CHLORIDE 0.9% 50 ML IVPB SCH (13:30)
[2017-08-03] MEDS: ENOXAPARIN 40 MG/0.4 ML SQ SCH (13:30)
[2017-08-03 18:52] VITALS: BP 129/76
[2017-08-03] MEDS ORDERED: CYCLOPHOSPHAMIDE IV ONE (21:00)
[2017-08-03] MEDS ORDERED: SODIUM CHLORIDE 0.9% IV ONE (21:00)
[2017-08-03] MEDS: ALLOPURINOL 300 MG TABLET PO SCH (21:47)
[2017-08-04] MEDS ORDERED: CYCLOPHOSPHAMIDE IV ONE
[2017-08-04] MEDS ORDERED: SODIUM CHLORIDE 0.9% IV ONE
[2017-08-04 02:24] VITALS: BP 121/74
[2017-08-04 05:42] LABS: ANION GAP 6 mmol/L (5-15); CALCIUM 8.3 mg/dL (8.5-10.1); CHLORIDE 108 mmol/L (98-107)
[2017-08-04 05:45] LABS: CREATININE 0.61 mg/dL (0.7-1.3)
[2017-08-04 05:52] LABS: BASOPHILS % (AUTO) 0 % (0-1); EOSINOPHILS % (AUTO) 0 % (1-7); LYMPHOCYTES # (AUTO) 0.16 x10^3/uL (1-3.4); LYMPHOCYTES % (AUTO) 5 % (22-44); MD NO; MEAN PLATELET VOLUME 7.3 fL (7.4-10.4); MONOCYTES # (AUTO) 0.06 x10^3/uL (0.2-0.8); MONOCYTES % (AUTO) 2 % (2-9); NEUTROPHILS # (AUTO) 3.27 x10^3/uL (1.8-6.8); NEUTROPHILS % (AUTO) 94 % (42-75); PLATELET COUNT 183 x10^3/uL (130-400); RED BLOOD COUNT 2.83 x10^6/uL (4.38-5.82); RED CELL DISTRIBUTION WIDTH 20.2 % (9.4-14.8)
[2017-08-04 09:08] VITALS: BP 139/88
== END 2017-08-04 12:55 | disposition home or self-care (01) | DRG 842 ==
LOC: 3NW 09:04
PROVIDERS: ADMIT Internal Medicine Hematology & Oncology; ATTEND Internal Medicine Hematology & Oncology
PROC: 02HV33Z Insertion of Infusion Device into Superior Vena Cava, Percutaneous Approach (ICD-10-PCS; principal; 2017-07-30)
PROC: B548ZZA Ultrasonography of Superior Vena Cava, Guidance (ICD-10-PCS; 2017-07-30)
PROC: B5181ZA Fluoroscopy of Superior Vena Cava using Low Osmolar Contrast, Guidance (ICD-10-PCS; 2017-07-30)
PROC: 009U3ZZ Drainage of Spinal Canal, Percutaneous Approach (ICD-10-PCS; 2017-07-31)
PROC: B01B1ZZ Fluoroscopy of Spinal Cord using Low Osmolar Contrast (ICD-10-PCS; 2017-07-31)
DX: C83.30 Diffuse large B-cell lymphoma, unspecified site (principal); D64.81 Anemia due to antineoplastic chemotherapy; T45.1X5A Adverse effect of antineoplastic and immunosuppressive drugs, initial encounter; Y92.89 Other specified places as the place of occurrence of the external cause; Z51.11 Encounter for antineoplastic chemotherapy
CPT/HCPCS: 36415; 36569; 62270; 76937; 77001; 80048; 80053; 83615; 83735; 84550; 85025; J1453; J1650; J2405; J3480; J3490; J9070; J9250; Q0162; Q0169; C1751; J1200; J7030; J7050; J7512; J9000; J9181; J9310; J9370; S0028